=== PATIENT | female | born 1960 | race Caucasian/White ===

== ENCOUNTER 2017-06-23 08:29 | Outpatient (CLI) | payer MEDICARE, MEDICAID ==
[2017-06-23 12:34] LABS: BASOPHILS # (AUTO) 0.1 10^3/uL (0.0-0.1); BASOPHILS % (AUTO) 0.7 %; EOSINOPHILS # (AUTO) 0.4 10^3/uL (0.0-0.7); EOSINOPHILS % (AUTO) 3.4 %; HCT - HEMATOCRIT 41.9 % (37.0-47.0); HGB - HEMOGLOBIN 14.3 g/dL (12.0-16.0); LYMPHOCYTES # (AUTO) 2.8 10^3/uL (1.5-3.5); LYMPHOCYTES % (AUTO) 22.9 %; MEAN CORPUSCULAR HEMOGLOBIN 32.2 pg (27.0-31.0); MEAN CORPUSCULAR HGB CONC 34.1 g/dL (32.0-36.0); MEAN CORPUSCULAR VOLUME 94.3 fL (81.0-99.0); MONOCYTES # (AUTO) 0.7 10^3/uL (0.0-1.0); MONOCYTES % (AUTO) 5.6 %; NEUTROPHILS # (AUTO) 8.1 10^3/uL (1.5-6.6); NEUTROPHILS % (AUTO) 67.4 %; RED BLOOD COUNT 4.45 10^6/uL (4.20-5.40); RED CELL DISTRIBUTION WIDTH 13.4 % (12.0-15.0); UNCORRECTED WHITE BLOOD COUNT 13.1 x10^3/uL
[2017-06-23 12:44] LABS: ALBUMIN/GLOBULIN RATIO 1.4 (1.0-2.2); BILIRUBIN,TOTAL 0.4 mg/dL (0.2-1.0); BUN - BLOOD UREA NITROGEN 16 mg/dL (6-20); CALCIUM 9.5 mg/dL (8.5-10.3); CARBON DIOXIDE - CO2 24 mmol/L (21-32); CHLORIDE 106 mmol/L (101-111); CHOL/HDL RATIO 6.1 (<4.4); CHOLESTEROL 190 mg/dL; CREATININE 0.8 mg/dL (0.4-1.0); GFR - MDRD 74 (>89); GLUCOSE 87 mg/dL (70-100); HDL CHOLESTEROL 31 mg/dL; LDL/HDL RATIO 2.6 (<4.4); SODIUM 138 mmol/L (135-145); TOTAL PROTEIN 7.4 g/dL (6.7-8.2); TRIGLYCERIDES 383 mg/dL; VLDL CHOLESTEROL 77 mg/dL
[2017-06-23 12:53] LABS: PLATELET MORPHOLOGY PLATELET CLUMPING (NORMAL)
== END 2017-06-23 08:30 | disposition home or self-care (01) ==
LOC: LAB.WCP 08:29
PROVIDERS: ATTEND Family Medicine
DX: F32.9 Major depressive disorder, single episode, unspecified (principal); Z13.220 Encounter for screening for lipoid disorders; E78.5 Hyperlipidemia, unspecified; C34.90 Malignant neoplasm of unspecified part of unspecified bronchus or lung
CPT/HCPCS: 36415; 80053; 80061; 85025

== ENCOUNTER 2018-03-16 08:00 | Outpatient (CLI) | payer MEDICAID, MEDICARE ==
[2018-03-16 14:13] LABS: ALBUMIN 4.3 g/dL (3.2-5.5); ALBUMIN/GLOBULIN RATIO 1.5 (1.0-2.2); ALKALINE PHOSPHATASE 85 IU/L (42-121); ALT ALANINE AMINOTRANSFERASE < 10 IU/L (10-60); AST ASPARTATE AMINOTRANSFERASE 16 IU/L (10-42); BILIRUBIN,TOTAL 0.6 mg/dL (0.2-1.0); BUN - BLOOD UREA NITROGEN 14 mg/dL (6-20); CALCIUM 9.2 mg/dL (8.5-10.3); CARBON DIOXIDE - CO2 26 mmol/L (21-32); CHLORIDE 105 mmol/L (101-111); CHOL/HDL RATIO 6.1 (<4.4); CHOLESTEROL 147 mg/dL; CREATININE 0.8 mg/dL (0.4-1.0); GFR - MDRD 73 (>89); GLUCOSE 89 mg/dL (70-100); HDL CHOLESTEROL 24 mg/dL; LDL CHOLESTEROL,CALCULATED 54 mg/dL; LDL/HDL RATIO 2.3 (<4.4); SODIUM 138 mmol/L (135-145); TOTAL PROTEIN 7.1 g/dL (6.7-8.2); VLDL CHOLESTEROL 69 mg/dL
[2018-03-16 14:31] LABS: BASOPHILS # (AUTO) 0.1 10^3/uL (0.0-0.1); BASOPHILS % (AUTO) 0.5 %; EOSINOPHILS # (AUTO) 0.3 10^3/uL (0.0-0.7); EOSINOPHILS % (AUTO) 2.9 %; HGB - HEMOGLOBIN 14.3 g/dL (12.0-16.0); LYMPHOCYTES # (AUTO) 2.2 10^3/uL (1.5-3.5); LYMPHOCYTES % (AUTO) 21.1 %; MEAN CORPUSCULAR HEMOGLOBIN 32.4 pg (27.0-31.0); MEAN CORPUSCULAR HGB CONC 33.9 g/dL (32.0-36.0); MEAN CORPUSCULAR VOLUME 95.6 fL (81.0-99.0); MEAN PLATELET VOLUME 11.4 fL (7.9-10.8); MONOCYTES # (AUTO) 0.7 10^3/uL (0.0-1.0); MONOCYTES % (AUTO) 6.6 %; NEUTROPHILS # (AUTO) 7.3 10^3/uL (1.5-6.6); NEUTROPHILS % (AUTO) 68.9 %; PLT - PLATELET COUNT 121 10^3/uL (130-450); RED BLOOD COUNT 4.41 10^6/uL (4.20-5.40); RED CELL DISTRIBUTION WIDTH 13.4 % (12.0-15.0); WHITE BLOOD COUNT 10.6 x10^3/uL (4.8-10.8)
[2018-03-16 14:56] LABS: PLATELET MORPHOLOGY PLATELET CLUMPING (NORMAL)
[2018-03-16 14:59] LABS: RBC MORPHOLOGY (MULTIPLE) NORMAL APPEARANCE (NORMAL)
== END 2018-03-16 08:01 | disposition home or self-care (01) ==
LOC: LAB.WCP 08:00
PROVIDERS: ATTEND Family Medicine
DX: Z79.899 Other long term (current) drug therapy (principal); G47.00 Insomnia, unspecified; E78.1 Pure hyperglyceridemia; F32.9 Major depressive disorder, single episode, unspecified; C34.90 Malignant neoplasm of unspecified part of unspecified bronchus or lung
CPT/HCPCS: 36415; 80053; 80061; 83721; 84443; 85025

== ENCOUNTER 2018-08-03 16:31 | Outpatient (CLI) | payer MEDICARE, OTHER ==
--- NOTE | 2018-08-03 17:21 | XRAY Report ---
Reason: L SHOULDER PAIN Procedure Date: 08/03/2018 Accession Number: [id number] / [id number] Procedure: XR - Shoulder 3 View LT CPT Code: FULL RESULT: EXAM: LEFT SHOULDER RADIOGRAPHY EXAM DATE: 08/03/2018 04:46 PM. CLINICAL HISTORY: Left shoulder pain for 5 days, getting worse. Decreased range of motion. COMPARISON: None. TECHNIQUE: 3 views. FINDINGS: Bones: Normal. No fracture or bone lesion. Joints: The glenohumeral and acromioclavicular joints are normal. Soft tissues: The visualized hemithorax is unremarkable. Soft tissue calcification along the superior humeral head. IMPRESSION: Calcific tendinitis. [facility] The call report notification system was initiated by Dr. Daniel Beltran at 17:03 hrs on 08/03/18. The above findings were discussed with Dr. De La Cruz by Dr. Daniel Beltran at 17:19 hrs on 08/03/18.
== END 2018-08-03 16:32 | disposition home or self-care (01) ==
LOC: DI 16:31
PROVIDERS: ATTEND Internal Medicine
DX: M75.32 Calcific tendinitis of left shoulder (principal)

== ENCOUNTER 2018-09-14 06:45 | Outpatient (CLI) | payer MEDICARE ==
--- NOTE | 2018-09-14 13:51 | MRI Report ---
Reason: PRIMARY OSTEOARTHRITIS OF LEFT SHOULDER REGION Procedure Date: 09/14/2018 Accession Number: [id number] / [id number] Procedure: MRI - Shoulder LT W/O CPT Code: FULL RESULT: EXAM: LEFT SHOULDER MRI WITHOUT CONTRAST EXAM DATE: 09/14/2018 07:51 AM. CLINICAL HISTORY: Primary osteoarthritis of left shoulder region. COMPARISON: SHOULDER 3 VIEW LT 08/03/2018 4:39 PM. TECHNIQUE: Multiplanar, multisequence T1-weighted and fluid-sensitive sequences of the shoulder without contrast. Other: None. FINDINGS: Acromioclavicular Region: The acromion is type II. The acromioclavicular joint is unremarkable. The coracoacromial and coracoclavicular ligaments are intact. Small fluid collection subacromial-subdeltoid bursa. Glenohumeral Region: No subluxation. No effusion or loose bodies. The articular cartilage is unremarkable. The glenohumeral ligaments and joint capsule are unremarkable. Small quantity of fluid subscapularis bursa. Bone Marrow: Subcortical cyst 5 mm anterior humerus head at the subscapularis tendon insertion. Subcortical cystic degenerative changes 1.2 cm in the anterior aspect of the greater tuberosity. Labrum: Probable superior labrum tear SLAP lesion. Musculature/Rotator Cuff: Focal intermediate signal anterior aspect distal infraspinatus tendon is consistent with tendinosis. Intermediate signal of the distal supraspinatus tendon is consistent with tendinosis. Negative for fluid signal rotator cuff tear. The rotator cuff muscles are negative for edema or atrophy. Small fluid collection subacromial-subdeltoid bursa. Small linear partial tear superior aspect subscapularis tendon 2 cm in length (image 4 series 501). Biceps Tendon: Normal caliber low signal biceps tendon within the bicipital groove. Mild biceps tendon sheath fluid. Intermediate signal of the biceps tendon proximal to the bicipital groove. Other: The subcutaneous tissues are unremarkable. IMPRESSION: 1. Negative for complete rotator cuff tear. 2. Small linear partial tear superior aspect subscapularis tendon 2 cm in length. 3. Supraspinatus and infraspinatus tendinosis. 4. Probable superior labrum tear or SLAP lesion. [facility] MUSCULOSKELETAL RADIOLOGY SECTION
== END 2018-09-14 06:46 | disposition home or self-care (01) ==
LOC: DI 06:45
PROVIDERS: ATTEND Orthopaedic Surgery
DX: M19.012 Primary osteoarthritis, left shoulder (principal); S46.812A Strain of other muscles, fascia and tendons at shoulder and upper arm level, left arm, initial encounter; M75.82 Other shoulder lesions, left shoulder

== ENCOUNTER 2018-10-11 17:09 | Emergency (ER) | payer MEDICARE ==
[2018-10-11] MEDS ORDERED: HYDROmorphone 1 MG/ML CARPUJECT IVP STA (17:45)
--- NOTE | 2018-10-11 17:47 | ED Physician Documentation ---
PD HPI HEADACHE - Stated complaint Stated Complaint: FERRER - Chief complaint Chief Complaint: Neuro - History obtained from History obtained from: Patient - History of Present Illness Timing - onset: Other (This is a 58-year-old woman with history of encephalitis and recurrent meningitis. Per her description she has had meningitis 5 times without defined etiology so I presume some sort of autoimmune issue. Anyway she has had 4 days of gradual onset frontal headache with very mild neck stiffness she says is not nearly as bad as prior episodes of meningitis. There is no fever, light Sensitivity or Nausea.) Review of Systems Ten Systems: 10 systems reviewed and negative Constitutional: denies: Fever, Chills Cardiac: denies: Chest pain / pressure, Palpitations Respiratory: denies: Dyspnea, Cough GI: reports: Reviewed and negative : reports: Reviewed and negative PD PAST MEDICAL HISTORY - Past Medical History Cardiovascular: None Respiratory: None Endocrine/Autoimmune: None GI: Other : None HEENT: Chronic vision loss, Other Psych: None Musculoskeletal: Chronic back pain Derm: None Other Past Medical History: Encephalitis, meningitis, - Past Surgical History Past Surgical History: Yes General: Appendectomy 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: 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 - Present Medications Home Medications: Ambulatory Orders Medication Instructions Recorded Confirmed Atorvastatin [Lipitor] 10 mg pe 10/11/18 Azithromycin [Zithromax] 1 tab PO DAILY #4 tablet 10/11/18 Hydrocodone/Acetaminophen 1 - 2 each PO Q6H PRN #14 tablet 10/11/18 [Hydrocodon-Acetaminophen 5-325] Sertraline HCl [Zoloft] 100 mg PO 10/11/18 - Allergies Allergies/Adverse Reactions: Allergies Allergy/AdvReac Type Severity Reaction Status Date / Time iodine Allergy Edema Verified 08/01/16 13:18 Penicillins Allergy Edema Verified 10/11/18 17:18 - Social History Does the pt smoke?: Yes Smoking Status: Current every day smoker Does the pt drink ETOH?: No Does the pt have substance abuse?: No - Family History Family history: reports: Non contributory - Immunizations Immunizations are current?: Yes PD ED PE NORMAL - Vitals Vital signs reviewed: Yes - General General: Alert and oriented X 3, No acute distress - HEENT HEENT: PERRL, EOMI - Neck Neck: Supple, no meningeal sign, No bony TTP - Cardiac Cardiac: RRR, No murmur - Respiratory Respiratory: No respiratory distress, Clear bilaterally - Abdomen Abdomen: Normal bowel sounds, Soft, Non tender - Back Back: No CVA TTP, No spinal TTP - Derm Derm: Normal color, Warm and dry - Extremities Extremities: No edema, No calf tenderness / cord - Neuro Neuro: Alert and oriented X 3, Normal speech - Psych Psych: Normal mood, Normal affect Results - Vitals Vitals: Vital Signs - 24 hr 10/11/18 10/11/18 10/11/18 17:15 17:30 18:40 Temperature 35.7 C L Heart Rate 76 65 57 L Respiratory 20 15 16 Rate Blood Pressure 138/80 H 117/68 127/71 O2 Saturation 99 97 98 Oxygen O2 Source Room air - Labs Labs: Laboratory Tests 10/11/18 10/11/18 10/11/18 17:45 17:45 18:23 WBC 12.1 H RBC 4.29 Hgb 13.6 Hct 41.5 MCV 96.7 MCH 31.8 H MCHC 32.9 RDW 13.6 Plt Count 159 MPV 10.2 Neut # (Auto) 8.2 H Lymph # (Auto) 2.7 [place] # (Auto) 0.7 Eos # (Auto) 0.3 Baso # (Auto) 0.1 Absolute Nucleated RBC 0.00 Nucleated RBC % 0.0 Manual Slide Review Indicated Sodium 138 Potassium 3.4 L Chloride 104 Carbon Dioxide 28 Anion Gap 6.0 BUN 9 Creatinine 0.8 Estimated GFR (MDRD) 73 L Glucose 97 Calcium 9.0 Total Bilirubin 0.2 AST 14 ALT < 10 L Alkaline Phosphatase 91 Total Protein 6.8 Albumin 4.1 Globulin 2.7 Albumin/Globulin Ratio 1.5 Lipase 19 L CSF Color COLORLESS CSF Clarity CLEAR Xanthrochromic ABSENT CSF WBC 0 CSF RBC 0 CSF Cell Count Tube # CSF TUBE# 3 CSF Glucose 55 CSF Total Protein 29 - Rads (name of study) CT Head Radiology: EMP read contemporaneously (No ICH, sinusitis Left spehnoid) Procedures - Lumbar Puncture Position: Sitting Location: L3-L4 Anesthesia: Local lidocaine CSF: Clear Other: Sterile prep and drape, Patient tolerated well, No complications PD MEDICAL DECISION MAKING - ED course ED course: 58-year-old woman with history of recurrent meningitis presents with headache. Found to have sinusitis but no evidence of meningitis. Treated with Zithromax given penicillin allergy. Departure - Departure Disposition: 01 Home, Self Care Clinical Impression: Sinusitis Qualifiers: Sinusitis location: sphenoidal Chronicity: acute Recurrence: non-recurrent Qualified Code(s): J01.30 - Acute sphenoidal sinusitis, unspecified Headache Qualifiers: Headache type: unspecified Headache chronicity pattern: acute headache Intractability: not intractable Qualified Code(s): R51 - Headache Clinical Impression: (Ruled Out): Meningitis Condition: Good Record reviewed to determine appropriate education?: Yes Instructions: ED Sinusitis Abx Tx Prescriptions: Azithromycin [Zithromax] 1 tab PO DAILY #4 tablet Hydrocodone/Acetaminophen [Hydrocodon-Acetaminophen 5-325] 1 - 2 each PO Q6H PRN #14 tablet PRN Reason: pain Comments: Call your doctor to arrange a follow-up appointment, make the next available appointment. In the interim, return anytime if worse or if new symptoms develop. Do not drink or drive while taking narcotic pain medication. Note that many narcotic pain relievers also contain Tylenol/acetaminophen. Please ensure that your total dose of acetaminophen from all sources does not exceed 3 g (3000 mg) per day. You may get constipated while on this medication. Take a stool softener such as Colace twice a day while you are on it. Also add an [id number] laxative such as senna or MiraLAX on any day that you do not have a bowel movement. If you received a narcotic pain medication or sedative while in the emergency department, do not drive for the next 24 hours.
[2018-10-11 18:07] LABS: BASOPHILS # (AUTO) 0.1 10^3/uL (0.0-0.1); BASOPHILS % (AUTO) 1.2 %; EOSINOPHILS # (AUTO) 0.3 10^3/uL (0.0-0.7); EOSINOPHILS % (AUTO) 2.2 %; HGB - HEMOGLOBIN 13.6 g/dL (12.0-16.0); LYMPHOCYTES # (AUTO) 2.7 10^3/uL (1.5-3.5); LYMPHOCYTES % (AUTO) 22.3 %; MEAN CORPUSCULAR HEMOGLOBIN 31.8 pg (27.0-31.0); MEAN CORPUSCULAR HGB CONC 32.9 g/dL (32.0-36.0); MEAN CORPUSCULAR VOLUME 96.7 fL (81.0-99.0); MEAN PLATELET VOLUME 10.2 fL (7.9-10.8); MONOCYTES # (AUTO) 0.7 10^3/uL (0.0-1.0); MONOCYTES % (AUTO) 6.2 %; NEUTROPHILS # (AUTO) 8.2 10^3/uL (1.5-6.6); NEUTROPHILS % (AUTO) 68.1 %; PLT - PLATELET COUNT 159 10^3/uL (130-450); RED BLOOD COUNT 4.29 10^6/uL (4.20-5.40); RED CELL DISTRIBUTION WIDTH 13.6 % (12.0-15.0); WHITE BLOOD COUNT 12.1 x10^3/uL (4.8-10.8)
[2018-10-11] MEDS ORDERED: LIDOCAINE 1%-EPI 1:100000 30 ML MDV ONE (18:14)
[2018-10-11 18:19] LABS: ALBUMIN 4.1 g/dL (3.2-5.5); ALBUMIN/GLOBULIN RATIO 1.5 (1.0-2.2); ALKALINE PHOSPHATASE 91 IU/L (42-121); ALT ALANINE AMINOTRANSFERASE < 10 IU/L (10-60); AST ASPARTATE AMINOTRANSFERASE 14 IU/L (10-42); BILIRUBIN,TOTAL 0.2 mg/dL (0.2-1.0); BUN - BLOOD UREA NITROGEN 9 mg/dL (6-20); CARBON DIOXIDE - CO2 28 mmol/L (21-32); CHLORIDE 104 mmol/L (101-111); CREATININE 0.8 mg/dL (0.4-1.0); GFR - MDRD 73 (>89); GLUCOSE 97 mg/dL (70-100); LIPASE 19 U/L (22-51); SODIUM 138 mmol/L (135-145); TOTAL PROTEIN 6.8 g/dL (6.7-8.2)
--- NOTE | 2018-10-11 18:46 | CT Report ---
Reason: headache Procedure Date: 10/11/2018 Accession Number: [id number] / [id number] Procedure: CT - Head W/O CPT Code: FULL RESULT: EXAM: CT HEAD EXAM DATE: 10/11/2018 06:08 PM. CLINICAL HISTORY: Headache. COMPARISON: None. TECHNIQUE: Multiaxial CT images were obtained from the foramen magnum to the vertex. Reformats: Sagittal and coronal. IV contrast: None. In accordance with CT protocol optimization, one or more of the following dose reduction techniques were utilized for this exam: automated exposure control, adjustment of mA and/or KV based on patient size, or use of iterative reconstructive technique. FINDINGS: Parenchyma: No intraparenchymal hemorrhage. No evidence of mass, midline shift, or CT findings of infarction. Hammond-white differentiation is distinct. Extraaxial Spaces: Normal for age. No subdural or epidural collections identified. Ventricles: Normal in size and position. Sinuses and Orbits: Mucosal thickening, worst in the left maxillary sinus. Right antrectomy noted. Fluid level in the left sphenoid sinus. The mastoids are clear. The orbits are unremarkable. Bones: No evidence of fracture or calvarial defect. Other: None. IMPRESSION: 1. No intracranial abnormality identified. 2. Sinusitis, with fluid level noted in the left sphenoid sinus. [facility]
[2018-10-11 18:55] LABS: CSF - GLUCOSE 55 mg/dL (45-70)
[2018-10-11 18:56] LABS: CLARITY,CSF CLEAR (CLEAR); COLOR,CSF COLORLESS (COLORLESS); CSF TUBE # CSF TUBE# 3; CSF XANTHOCHROMIA ABSENT (ABSENT); RED BLOOD CELL,CSF 0 /mm^3 (0-1); WHITE BLOOD CELL,CSF 0 /mm^3 (0-5)
[2018-10-11] MEDS ORDERED: AZITHROMYCIN 250 MG TABLET PO STA (19:04)
[2018-10-11 19:10] VITALS: BP 120/77
[2018-10-11] MEDS ORDERED: KETOROLAC 60 MG/2 ML VIAL IVP STA (19:18)
== END 2018-10-11 19:40 | disposition home or self-care (01) ==
LOC: ED 17:09
DX: J01.30 Acute sphenoidal sinusitis, unspecified (principal); F17.200 Nicotine dependence, unspecified, uncomplicated; Z86.61 Personal history of infections of the central nervous system
CPT/HCPCS: 36415; 62270; 70450; 80053; 82945; 83690; 84157; 85025; 86695; 86696; 87070; 87205; 89051; 96374; 96375; 99283; 99284; A9270; J1170

== ENCOUNTER 2019-02-11 13:21 | Outpatient (CLI) | payer MEDICARE ==
--- NOTE | 2019-02-12 08:32 | XRAY Report ---
Reason: DUYSPENA Procedure Date: 02/11/2019 Accession Number: [id number] / [id number] Procedure: XR - Chest 2 View X-Ray CPT Code: 31657 FULL RESULT: EXAM: CHEST RADIOGRAPHY EXAM DATE: 02/11/2019 02:12 PM. CLINICAL HISTORY: Dyspnea. COMPARISON: None. TECHNIQUE: 2 views. FINDINGS: Lungs/Pleura: No focal opacities evident. No pleural effusion. No pneumothorax. Normal volumes. Right apical pleural thickening is noted. Mediastinum: Heart and mediastinal contours are unremarkable. Other: None. IMPRESSION: 1. No acute pulmonary process. [facility]
== END 2019-02-11 13:22 | disposition home or self-care (01) ==
LOC: DI 13:21
PROVIDERS: ATTEND Internal Medicine
DX: R06.00 Dyspnea, unspecified (principal)
CPT/HCPCS: 71046

== ENCOUNTER 2022-06-05 08:37 | Outpatient (CLI) | payer OTHER ==
--- NOTE | 2022-06-05 12:46 | CT Report ---
PROCEDURE: Low Dose Lung Cancer Screen INDICATIONS: Tobacco use history. PARETHESIAS TECHNIQUE: Noncontrast low-dose axial images were acquired from the pulmonary apices to the posterior costophren ic angles. Multiplanar MIP reformats were then reconstructed. For radiation dose reduction, the follo wing was used: automated exposure control, adjustment of mA and/or kV according to patient size. COMPARISON: Chest radiograph, 02/11/2019 FINDINGS: Image quality: Excellent. Lungs and pleura: There is a small amount of brain also opacity seen within the right middle lobe camara periorly and laterally, as on series 4 image 125, measuring 18 mm. Mediastinum: Heart size is normal. No pericardial effusion. No mediastinal adenopathy by size crit eria. Calcified left mediastinal and left perihilar lymph nodes are seen. Thoracic aorta and central pulmonary arteries are normal in size. Esophagus is normal in caliber. There is a small hiatal autumn ia. Bones and chest wall: No suspicious bony lesions. No vertebral body compression fractures. No axil ravi or supraclavicular adenopathy by size criteria. The thyroid is normal in size and there are no incidental findings. Abdomen: Visualized upper abdomen solid organs and bowel loops appear normal in the absence of contr ast. Lumbar spine fixation hardware is partially seen. IMPRESSION: There is a 2 mm focus of groundglass opacity seen within the right middle lobe. No suspicious solid nodules are seen. Incidental note is made of: Small hiatal hernia Lumbar spine fixation hardware Prior granulomatous exposure. Lung RADS category: 2 Recommend annual low-dose CT chest screening examinations, as long as the patient meets the published screening criteria. Reviewed by: Aryan Roy MD on 06/05/2022 11:44 AM DEBBIE Approved by: Aryan Roy MD on 06/05/2022 11:44 AM DEBBIE Station ID: [id number]
== END 2022-06-05 08:38 | disposition home or self-care (01) ==
LOC: DI 08:37
PROVIDERS: ATTEND Nurse Practitioner
DX: Z12.2 Encounter for screening for malignant neoplasm of respiratory organs (principal); Z87.891 Personal history of nicotine dependence; R91.8 Other nonspecific abnormal finding of lung field

== ENCOUNTER 2022-08-23 09:33 | Outpatient (CLI) | payer MEDICARE ==
[2022-08-23 12:01] LABS: BASOPHILS # (AUTO) 0.1 10^3/uL (0.0-0.1); BASOPHILS % (AUTO) 0.9 %; EOSINOPHILS # (AUTO) 0.4 10^3/uL (0.0-0.7); HCT - HEMATOCRIT 40.5 % (37.0-47.0); HGB - HEMOGLOBIN 13.7 g/dL (12.0-16.0); LYMPHOCYTES # (AUTO) 2.3 10^3/uL (1.5-3.5); LYMPHOCYTES % (AUTO) 22.9 %; MEAN CORPUSCULAR HEMOGLOBIN 32.9 pg (27.0-31.0); MEAN CORPUSCULAR HGB CONC 33.8 g/dL (32.0-36.0); MEAN CORPUSCULAR VOLUME 97.1 fL (81.0-99.0); MEAN PLATELET VOLUME 12.3 fL (7.9-10.8); MONOCYTES # (AUTO) 0.7 10^3/uL (0.0-1.0); MONOCYTES % (AUTO) 6.5 %; NEUTROPHILS # (AUTO) 6.6 10^3/uL (1.5-6.6); NEUTROPHILS % (AUTO) 65.4 %; RED BLOOD COUNT 4.17 10^6/uL (4.20-5.40); RED CELL DISTRIBUTION WIDTH 12.5 % (12.0-15.0); WHITE BLOOD COUNT 10.2 x10^3/uL (4.8-10.8)
[2022-08-23 12:14] LABS: PLATELET MORPHOLOGY PLATELET CLUMPING (NORMAL)
[2022-08-23 12:27] LABS: ALBUMIN 4.5 g/dL (3.2-5.5); ALBUMIN/GLOBULIN RATIO 1.8 (1.0-2.2); ALKALINE PHOSPHATASE 73 IU/L (42-121); ALT ALANINE AMINOTRANSFERASE 11 IU/L (10-60); AST ASPARTATE AMINOTRANSFERASE 17 IU/L (10-42); BILIRUBIN,TOTAL 0.8 mg/dL (0.2-1.0); BUN - BLOOD UREA NITROGEN 10 mg/dL (6-20); CALCIUM 9.6 mg/dL (8.5-10.3); CARBON DIOXIDE - CO2 29 mmol/L (21-32); CHLORIDE 102 mmol/L (101-111); CHOL/HDL RATIO 4.3 (<4.4); CHOLESTEROL 133 mg/dL; CREATININE 0.8 mg/dL (0.4-1.0); GFR - MDRD 72 (>89); GLUCOSE 98 mg/dL (70-100); HDL CHOLESTEROL 31 mg/dL; LDL CHOLESTEROL,CALCULATED 36 mg/dL; LDL/HDL RATIO 1.2 (<4.4); SODIUM 138 mmol/L (135-145); TRIGLYCERIDES 331 mg/dL; VLDL CHOLESTEROL 66 mg/dL
[2022-08-23 12:29] LABS: THYROID STIMULATING HORMONE 2.02 uIU/mL (0.34-5.60)
[2022-08-23 12:31] LABS: FREE T4 (FREE THYROXINE) 0.92 ng/dL (0.58-1.64)
== END 2022-08-23 09:34 | disposition home or self-care (01) ==
LOC: LAB.N 09:33
PROVIDERS: ATTEND Nurse Practitioner
DX: E78.1 Pure hyperglyceridemia (principal); R53.83 Other fatigue; Z85.850 Personal history of malignant neoplasm of thyroid
CPT/HCPCS: 36415; 80053; 80061; 83721; 84439; 84443; 85025

== ENCOUNTER 2023-07-25 17:34 | Emergency (ER) | payer MEDICARE ==
[2023-07-25 17:53] VITALS: BP 160/96; O2SAT 99
[2023-07-25] MEDS ORDERED: methocarbamoL 500 MG TABLET PO STA (18:14)
[2023-07-25] MEDS ORDERED: HYDROmorphone 1 MG/ML CARPUJECT IM STA (18:15)
[2023-07-25] MEDS ORDERED: DEXAMETHASONE 10 MG/ML VIAL PO STA (18:15)
--- NOTE | 2023-07-25 18:17 | ED Physician Documentation ---
PD HPI BACK PAIN - Stated complaint Stated Complaint: BACK PX/SPASMS - Chief complaint Chief Complaint: Back Pain - History obtained from History obtained from: Patient, Family - History of Present Illness Location: Mid, Lower, Right, Left Quality: Pain, Spasm Associated symptoms: No: Fever, Weakness, Numbness, Incontinent of urine, Unable to urinate, Hematuria, Incontinent of stool Improves with: Rest Worsened by: Movement Contributing factors: Other (Patient states that she did not lift, twist or have any trauma. She states spasm to the back.). No: Lifting, Twisting, Trauma, Anticoagulated, Cancer, IVDA, Out of meds Similar symptoms before: Other (Patient has had spine surgery, is on chronic pain medication at home and has chronic back pain.) - Additional information Additional information: Patient is a 62-year-old female has a longstanding history of chronic back pain. Review of Systems Constitutional: denies: Fever, Chills GI: denies: Nausea, Vomiting, Diarrhea : denies: Unable to Void, Incontinent, Hematuria Skin: denies: Rash Musculoskeletal: denies: Neck pain Neurologic: denies: Headache PD PAST MEDICAL HISTORY - Past Medical History Past Medical History: Yes Cardiovascular: Hypertension, High cholesterol Respiratory: COPD Neuro: None Endocrine/Autoimmune: None GI: Other DISPERSION MIXER: None : None HEENT: Chronic vision loss, Other Psych: None Musculoskeletal: Osteoarthritis, Chronic back pain Derm: None - Past Surgical History Past Surgical History: Yes General: Appendectomy Ortho: Other /DISPERSION MIXER: Hysterectomy, Oophrectomy - Present Medications Home Medications: Ambulatory Orders Medication Instructions Recorded Confirmed Atorvastatin [Lipitor] 10 mg pe ORAL DAILY 10/11/18 07/25/23 Sertraline HCl [Zoloft] 100 mg PO DAILY 10/11/18 07/25/23 Buprenorphine HCl [Belbuca] 300 mcg BC BID 07/25/23 07/25/23 Cyclobenzaprine HCl 5 mg PO TID PRN 07/25/23 07/25/23 Pantoprazole [Protonix] 40 mg PO BID 07/25/23 07/25/23 Trazodone HCl 100 mg PO HS 07/25/23 07/25/23 buPROPion HCL [Bupropion Xl] 150 mg PO DAILY 07/25/23 07/25/23 methocarbamoL [Robaxin] 500 mg PO Q6H PRN #20 tablet 07/25/23 methylPREDNISolone [Medrol] 4 mg PO DAILY #1 ea 07/25/23 - Allergies Allergies/Adverse Reactions: Allergies Allergy/AdvReac Type Severity Reaction Status Date / Time iodine Allergy Edema Verified 07/25/23 17:46 Penicillins Allergy Edema Verified 07/25/23 17:46 - Social History Does the pt smoke?: No Smoking Status: Former smoker Does the pt drink ETOH?: No Does the pt have substance abuse?: No - Immunizations Immunizations are current?: Yes PD ED PE NORMAL - Vitals Vital signs reviewed: Yes - General General: Alert and oriented X 3, No acute distress - HEENT HEENT: Moist mucous membranes - Neck Neck: Supple, no meningeal sign - Cardiac Cardiac: RRR - Respiratory Respiratory: No respiratory distress, Clear bilaterally - Abdomen Abdomen: Soft, Non tender, Non distended - Back Back: Other (Midline scar to the lumbar spine from prior surgeries. No signs of infection. No spinal tenderness. No significant spasm.) - Derm Derm: Warm and dry - Extremities Extremities: No edema, No calf tenderness / cord - Neuro Neuro: Alert and oriented X 3, No motor deficit, No sensory deficit, Other (Normal bilateral lower extremity patellar and ankle jerk reflexes. Normal great toe extension bilaterally. no saddle anesthesia) - Psych Psych: Normal mood, Normal affect Results - Vitals Vitals: Vital Signs - 24 hr 07/25/23 17:46 Temperature 37.1 C Heart Rate 81 Respiratory 20 Rate Blood Pressure 160/96 H O2 Saturation 99 Oxygen O2 Source Room air PD Medical Decision Making - ED course Complexity details: re-evaluated patient, considered differential (No cauda equina, no spinal epidural abscess, no fracture, no aortic dissection or evidence of aneursym rupture), d/w patient ED course: 62-year-old female with paroxysmal back spasms, low lumbar spine. Likely has some nerve irritation. No trauma. No indication for emergent imaging. No evidence of cauda equina, epidural abscess. She is on buprenorphine for pain at home. Given a dose of Dilaudid here as well as Robaxin and dexamethasone. Spasms are decreasing in frequency and intensity and she request to go home at this time. We will place her on a Medrol Dosepak and Robaxin. Patient counseled regarding signs and symptoms for which I believe and urgent re-ev aluation would be necessary. Patient with good understanding of and agreement to plan and is comfortable going home at this time This document was made in part using voice recognition software. While efforts are made to proofread this document, sound alike and grammatical errors may occur. Departure - Departure Disposition: 01 Home, Self Care Clinical Impression: Back muscle spasm Condition: Good Instructions: ED Spasm Back No Trauma Follow-Up: Tete Chandler ARNP [Primary Care Provider] - Within 3 Days Prescriptions: methylPREDNISolone [Medrol] 4 mg PO DAILY #1 ea methocarbamoL [Robaxin] 500 mg PO Q6H PRN #20 tablet PRN Reason: muscle spasm Comments: Your prescriptions were sent to [facility] in [place]. Please follow-up with your doctor for further care. Please return if you worsen. This should continue to improve over the next 24 hours. Continue your current medications at home. Discharge Date/Time: 07/25/23 20:00
[2023-07-25] MEDS ORDERED: CHERRY SYRUP 10 ML UDC PO ONE (18:46)
== END 2023-07-25 20:00 | disposition home or self-care (01) ==
LOC: ED 17:34
DX: M62.830 Muscle spasm of back (principal); I10 Essential (primary) hypertension; Z87.891 Personal history of nicotine dependence
CPT/HCPCS: 96372; 99283; A9270; J1170

== ENCOUNTER 2023-08-25 10:43 | Outpatient (CLI) | payer MEDICARE ==
--- NOTE | 2023-08-25 16:52 | XRAY Report ---
PROCEDURE: Lumbar Spine 2 View INDICATIONS: LOW BACK PAIN,CHRONIC TECHNIQUE: 3 views of the lumbar spine were acquired. COMPARISON: None. FINDINGS: Bones: 5 [id number] vertebrae are present. There is normal bony alignment. No vertebral body compression fractures. No suspicious bony lesions. L3-L5 fusion hardware. Multilevel disc space norman rowing and endplate osteophyte formation, as well as facet hypertrophy. Soft tissues: Overlying bowel gas pattern is normal. No suspicious soft tissue calcifications. IMPRESSION: 1. Postsurgical sequelae. 2. Multilevel degenerative disc and facet disease. 3. No acute fracture. No osseous lesion. If symptoms and/or clinical suspicion for pathology continue , further assessment with repeat plain films, or advanced imaging (e.g., CT, MRI, or bone scan) is re commended for further assessment. Reviewed by: Neptali Wharton MD on 08/25/2023 4:51 PM PDT Approved by: Neptali Wharton MD on 08/25/2023 4:51 PM PDT Station ID: [id number]
== END 2023-08-25 10:44 | disposition home or self-care (01) ==
LOC: DI 10:43
PROVIDERS: ATTEND Nurse Practitioner
DX: M47.816 Spondylosis without myelopathy or radiculopathy, lumbar region (principal); M51.36 Other intervertebral disc degeneration, lumbar region

== ENCOUNTER 2023-12-13 08:00 | Outpatient (CLI) | payer MEDICARE ==
[2023-12-13 18:15] LABS: BILIRUBIN,URINE NEGATIVE (NEGATIVE); GLUCOSE, URINE (UA) NEGATIVE (NEGATIVE); KETONES,URINE (UA) NEGATIVE (NEGATIVE); LEUKOCYTE ESTERASE, URINE MODERATE (NEGATIVE); NITRITE,URINE POSITIVE (NEGATIVE); OCCULT BLOOD,URINE LARGE (NEGATIVE); PROTEIN,URINE 100 mg/dL (NEGATIVE); UROBILINOGEN,URINE 0.2 (NORMAL) E.U./dL (NORMAL)
[2023-12-13 18:17] LABS: CLARITY,URINE CLOUDY (CLEAR)
[2023-12-13 18:29] LABS: BACTERIA,URINE Many /HPF (None Seen); CRYSTALS,URINE 0-2 Calcium Oxalate /LPF; SQUAMOUS EPITHELIAL CELL,UR RARE Squamous (<= Few); WBC,URINE >25 /HPF (0-5)
== END 2023-12-13 23:59 | disposition home or self-care (01) ==
LOC: LAB.WCP 08:00
PROVIDERS: ATTEND Nurse Practitioner
DX: N39.0 Urinary tract infection, site not specified (principal)
CPT/HCPCS: 81001; 87086; 87181

== ENCOUNTER 2023-12-27 08:00 | Outpatient (CLI) | payer MEDICARE ==
[2023-12-27 12:50] LABS: BILIRUBIN,URINE NEGATIVE (NEGATIVE); GLUCOSE, URINE (UA) NEGATIVE (NEGATIVE); KETONES,URINE (UA) NEGATIVE (NEGATIVE); LEUKOCYTE ESTERASE, URINE TRACE (NEGATIVE); NITRITE,URINE NEGATIVE (NEGATIVE); OCCULT BLOOD,URINE LARGE (NEGATIVE); PH,URINE 5.5 PH (5.0-7.5); PROTEIN,URINE 100 mg/dL (NEGATIVE); UROBILINOGEN,URINE 0.2 (NORMAL) E.U./dL (NORMAL)
[2023-12-27 13:03] LABS: CLARITY,URINE HAZY (CLEAR)
[2023-12-27 13:04] LABS: BACTERIA,URINE Few /HPF (None Seen); CRYSTALS,URINE 11-25 Ca Oxalate /LPF; RBC,URINE TNTC /HPF (0-5); SQUAMOUS EPITHELIAL CELL,UR FEW Squamous (<= Few)
== END 2023-12-27 23:59 | disposition home or self-care (01) ==
LOC: LAB.N 08:00
PROVIDERS: ATTEND Nurse Practitioner
DX: N20.0 Calculus of kidney (principal)
CPT/HCPCS: 81001; 81003; 82365; 87086

== ENCOUNTER 2024-01-03 15:28 | Outpatient (CLI) | payer MEDICARE ==
[2024-01-03] MEDS ORDERED: iohexoL-300 100 ML VIAL ONE (15:43)
[2024-01-03 15:58] LABS: CREATININE 0.9 mg/dL (0.6-1.3)
[2024-01-03] MEDS: iohexoL-300 100 ML VIAL IVP ONE (19:46)
--- NOTE | 2024-01-04 13:23 | CT Report ---
PROCEDURE: IVP INDICATIONS: KIDNEY STONE CONTRAST: 140mL Omni 300 TECHNIQUE: A [address] of the abdomen and pelvis was performed. Non-contrast and contrast images were recorded and evaluated at appropriate window settings. Images were recorded and evaluated at appropriate windo w settings. Reformats: coronal and sagittal. For radiation dose reduction, the following was used: au tomated exposure control, adjustment of convex left scoliosis. 3 interval casting with improved align ment at the tibia and fibula fractures. MA and/or kV according to patient size. COMPARISON: 06/05/2020. FINDINGS: Image quality: Suboptimal due to metallic artifact. Urinary system: Both kidneys are normal in size. No hydronephrosis or nephrolithiasis on pre-contras t images. No solid masses or complex cysts which require follow up. The opacified renal calyces and ureters appear normal, without filling defect. Bladder wall thickness is normal, accounting for unde rdistention. No calcified bladder stones. Polypoidal filling mass along the left posterior bladder wa ll measuring 2.3 x 2.4 cm (series 12, image 121). OTHER Lower chest: Large left pleural effusion with left basilar atelectasis. Sub-5 mm solid pulmonary nodu les in the right lung base, new since 06/05/2022. Additional calcific granuloma present. Liver: No solid mass. Gallbladder and biliary tree: No radiopaque stones or wall thickening. No biliary dilation. Spleen: No splenomegaly. Pancreas: No pancreatic ductal dilation. Adrenals: No adrenal nodule. Stomach, bowel and peritoneum: No bowel distension. No pathologic free fluid. Diverticulosis without evidence of diverticulitis. Abdominal Lymph nodes: No central or retroperitoneal adenopathy. Vessels: Unremarkable. Reproductive organs: Unremarkable. Pelvic Lymph nodes: Unremarkable. Bones: No aggressive osseous abnormality. Other: None. IMPRESSION: Polypoidal filling mass along the left posterior bladder wall measuring 2.3 x 2.4 cm, concerning for transitional cell carcinoma. Urology referral is recommended. No pelvic adenopathy. Large left pleural effusion with left basilar atelectasis. Additionally, there is new right basilar p ulmonary nodules concerning for malignancy. Recommend chest CT with contrast for further characteriza tion. Reviewed by: Emery Cali MD on 01/04/2024 1:22 PM PST Approved by: Emery Cali MD on 01/04/2024 1:22 PM PST Station ID: [id number]
== END 2024-01-03 15:29 | disposition home or self-care (01) ==
LOC: LAB 15:28
PROVIDERS: ATTEND Nurse Practitioner
DX: N20.0 Calculus of kidney (principal); N32.89 Other specified disorders of bladder; J90 Pleural effusion, not elsewhere classified; J98.11 Atelectasis; R91.8 Other nonspecific abnormal finding of lung field
CPT/HCPCS: 36415; 74178; 82565; Q9967

== ENCOUNTER 2024-01-19 14:55 | Outpatient (CLI) | payer MEDICARE ==
[2024-01-19] MEDS ORDERED: iohexoL-300 100 ML VIAL ONE (14:59)
[2024-01-19 15:41] LABS: HCT - HEMATOCRIT 37.4 % (37.0-47.0); HGB - HEMOGLOBIN 12.1 g/dL (12.0-16.0); MEAN CORPUSCULAR HEMOGLOBIN 30.4 pg (27.0-31.0); MEAN CORPUSCULAR HGB CONC 32.4 g/dL (32.0-36.0); MEAN PLATELET VOLUME 10.8 fL (7.9-10.8); RED BLOOD COUNT 3.98 10^6/uL (4.20-5.40); RED CELL DISTRIBUTION WIDTH 13.4 % (12.0-15.0); WHITE BLOOD COUNT 7.8 x10^3/uL (4.8-10.8)
[2024-01-19] MEDS: iohexoL-300 100 ML VIAL IVP ONE (15:47)
[2024-01-19 15:54] LABS: PLT - PLATELET COUNT 294 10^3/uL (130-450)
--- NOTE | 2024-01-19 16:17 | CT Report ---
PROCEDURE: Chest W INDICATIONS: LUNG NODULE CONTRAST: 100ml omni 300 TECHNIQUE: After the administration of intravenous contrast, a CT scan of the chest was performed. Images were recorded and evaluated at appropriate window settings. Reformats: axial MIP of the chest, coronal and sagittal. For radiation dose reduction, the following was used: automated exposure control, adjustme nt of mA and/or kV according to patient size. COMPARISON: 01/03/2024. FINDINGS: Image quality: Diagnostic. Chest wall and lower neck: Left thyroidectomy. Borderline enlarged left supraclavicular fossa node me asuring 0.7 cm short axis (series 2, image 7). Lungs and pleura: Large, likely a left-sided pleural effusion with pleural thickening. Solid bilatera l pulmonary nodules, concerning for metastatic disease. For instance: -1 cm right lower lobe solid nodule (series 4, image 49). -0.9 cm left upper lobe solid nodule (series 4, image 38). Mediastinum: Heart size is normal. No pericardial effusion. No large vessel abnormality. Mediastinal adenopathy. For instance: -1.1 cm right lower paratracheal node (series 2, image 28). -1.5 cm right upper paratracheal node (series 2, image 24). Bones: No aggressive osseous abnormality. T10 hemangioma. Upper Abdomen: Hyperattenuating 5 mm focus in segment 7 (series 2, image 34). IMPRESSION: Solid bilateral pulmonary nodules, concerning for metastatic disease. Borderline enlarged left supraclavicular fossa node. No enlarged mediastinal lymph nodes, concerning for lymphadenopathy. Large, loculated left-sided pleural effusion with pleural thickening, possibly malignant. Hyperattenuating 5 mm focus in segment 7 of the liver. Findings could represent a small metastasis or hemangioma. Reviewed by: Emery Cali MD on 01/19/2024 4:16 PM PST Approved by: Emery Cali MD on 01/19/2024 4:16 PM PST Station ID: [id number]
== END 2024-01-19 14:56 | disposition home or self-care (01) ==
LOC: DI 14:55
PROVIDERS: ATTEND Nurse Practitioner
DX: R53.83 Other fatigue (principal); D69.1 Qualitative platelet defects; R91.8 Other nonspecific abnormal finding of lung field; J90 Pleural effusion, not elsewhere classified; K76.89 Other specified diseases of liver
CPT/HCPCS: 36415; 85027

== ENCOUNTER 2024-01-19 15:20 | Emergency (ER) | payer MEDICARE ==
[2024-01-19 16:01] LABS: BASOPHILS # (AUTO) 0.1 10^3/uL (0.0-0.1); BASOPHILS % (AUTO) 0.8 %; EOSINOPHILS # (AUTO) 0.2 10^3/uL (0.0-0.7); EOSINOPHILS % (AUTO) 2.6 %; HCT - HEMATOCRIT 37.4 % (37.0-47.0); HGB - HEMOGLOBIN 12.1 g/dL (12.0-16.0); LYMPHOCYTES % (AUTO) 25.8 %; MEAN CORPUSCULAR HEMOGLOBIN 30.3 pg (27.0-31.0); MEAN CORPUSCULAR HGB CONC 32.4 g/dL (32.0-36.0); MEAN CORPUSCULAR VOLUME 93.5 fL (81.0-99.0); MONOCYTES # (AUTO) 0.6 10^3/uL (0.0-1.0); MONOCYTES % (AUTO) 7.8 %; NEUTROPHILS # (AUTO) 4.9 10^3/uL (1.5-6.6); NEUTROPHILS % (AUTO) 62.9 %; RED CELL DISTRIBUTION WIDTH 13.4 % (12.0-15.0); WHITE BLOOD COUNT 7.8 x10^3/uL (4.8-10.8)
[2024-01-19 16:05] LABS: MEAN PLATELET VOLUME 9.8 fL (7.9-10.8); PLT - PLATELET COUNT 265 10^3/uL (130-450)
[2024-01-19 16:12] LABS: ALBUMIN 4.1 g/dL (3.2-5.5); ALBUMIN/GLOBULIN RATIO 1.8 (1.0-2.2); ALKALINE PHOSPHATASE 97 IU/L (42-121); ALT ALANINE AMINOTRANSFERASE 4 IU/L (10-60); AST ASPARTATE AMINOTRANSFERASE 12 IU/L (10-42); BILIRUBIN,TOTAL 0.5 mg/dL (0.2-1.0); BUN - BLOOD UREA NITROGEN 8 mg/dL (6-20); CALCIUM 9.7 mg/dL (8.5-10.3); CARBON DIOXIDE - CO2 30 mmol/L (21-32); CHLORIDE 99 mmol/L (101-111); CREATININE 0.7 mg/dL (0.6-1.3); GFR - MDRD 84 (>89); GLUCOSE 111 mg/dL (74-104); POTASSIUM 3.6 mmol/L (3.5-4.5); SODIUM 136 mmol/L (135-145); TOTAL PROTEIN 6.4 g/dL (6.4-8.9)
[2024-01-19 16:15] LABS: LIPASE < 10 U/L (11-82)
[2024-01-19 16:30] LABS: BILIRUBIN,URINE NEGATIVE (NEGATIVE); GLUCOSE, URINE (UA) NEGATIVE (NEGATIVE); KETONES,URINE (UA) NEGATIVE (NEGATIVE); LEUKOCYTE ESTERASE, URINE MODERATE (NEGATIVE); NITRITE,URINE POSITIVE (NEGATIVE); OCCULT BLOOD,URINE LARGE (NEGATIVE); PH,URINE 6.5 PH (5.0-7.5); PROTEIN,URINE 30 mg/dL (NEGATIVE); UROBILINOGEN,URINE 0.2 (NORMAL) E.U./dL (NORMAL)
[2024-01-19 16:32] LABS: CLARITY,URINE CLOUDY (CLEAR)
--- NOTE | 2024-01-19 16:35 | ED Physician Documentation ---
PD HPI ABD PAIN - Stated complaint Stated Complaint: - Chief complaint Chief Complaint: Abd Pain - History obtained from History obtained from: Patient, Family - Additional information Additional information: 63-year-old woman who was previously healthy started to have some urinary symptoms and had a workup done recently. She did have a UTI with E. coli the end of the November and subsequently started having progressive hematuria. She had outpatient CAT scan done on 04 January demonstrating a bladder mass with large pleural effusion and pulmonary nodules concerning for malignancy. This was followed by a chest CT done today as an outpatient demonstrating bilateral pulmonary nodules concerning for metastatic disease, large loculated left pleural effusion possibly malignant, possible small metastasis in the liver. She has been having more hematuria and yesterday was having clots and she has some suprapubic pain and pressure as well as left-sided chest pressure and shortness of breath. 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: Hysterectomy, Oophrectomy - Present Medications Home Medications: Ambulatory Orders Medication Instructions Recorded Confirmed Atorvastatin [Lipitor] 10 mg pe ORAL DAILY 10/11/18 07/25/23 Sertraline HCl [Zoloft] 100 mg PO DAILY 10/11/18 07/25/23 Buprenorphine HCl [Belbuca] 300 mcg BC BID 07/25/23 07/25/23 Cyclobenzaprine HCl 5 mg PO TID PRN 07/25/23 07/25/23 Pantoprazole [Protonix] 40 mg PO BID 07/25/23 07/25/23 Trazodone HCl 100 mg PO HS 07/25/23 07/25/23 buPROPion HCL [Bupropion Xl] 150 mg PO DAILY 07/25/23 07/25/23 methocarbamoL [Robaxin] 500 mg PO Q6H PRN #20 tablet 07/25/23 methylPREDNISolone [Medrol] 4 mg PO DAILY #1 ea 07/25/23 HYDROcod/ACETAM 5/325 [[place] 5/325] 1 - 2 tab PO Q6H PRN #15 tablet 01/19/24 cephALEXin [Keflex] 500 mg PO Q6H #28 cap 01/19/24 - Allergies Allergies/Adverse Reactions: Allergies Allergy/AdvReac Type Severity Reaction Status Date / Time iodine Allergy Edema Verified 01/19/24 15:44 Penicillins Allergy Edema Verified 01/19/24 15:44 - Social History Does the pt smoke?: No Smoking Status: Never smoker Does the pt drink ETOH?: No Does the pt have substance abuse?: No - Immunizations Immunizations are current?: Yes - POLST Patient has POLST: Yes PD ED PE NORMAL - Vitals Vital signs reviewed: Yes - General General: Alert and oriented X 3, No acute distress - HEENT HEENT: PERRL, EOMI - Neck Neck: Supple, no meningeal sign, No bony TTP - Cardiac Cardiac: RRR, No murmur - Respiratory Respiratory: No respiratory distress, Other (Absent left-sided breath sounds) - Abdomen Abdomen: Non tender - Neuro Neuro: Alert and oriented X 3, Normal speech Results - Vitals Vitals: Vital Signs - 24 hr 01/19/24 01/19/24 15:35 18:02 Temperature 36.3 C L Heart Rate 69 71 Respiratory 16 18 Rate Blood Pressure 111/54 L 115/65 O2 Saturation 100 98 Oxygen O2 Source Room air - Labs Labs: Laboratory Tests 01/19/24 01/19/24 01/19/24 15:01 15:01 16:15 WBC 7.8 RBC 4.00 L Hgb 12.1 Hct 37.4 MCV 93.5 MCH 30.3 MCHC 32.4 RDW 13.4 Plt Count 265 MPV 9.8 Neut # (Auto) 4.9 Lymph # (Auto) 2.0 [place] # (Auto) 0.6 Eos # (Auto) 0.2 Baso # (Auto) 0.1 Absolute Nucleated RBC 0.00 Nucleated RBC % 0.0 Sodium 136 Potassium 3.6 Chloride 99 L Carbon Dioxide 30 Anion Gap 7.0 BUN 8 Creatinine 0.7 Estimated GFR (MDRD) 84 L Glucose 111 H Calcium 9.7 Total Bilirubin 0.5 AST 12 ALT 4 L Alkaline Phosphatase 97 Total Protein 6.4 Albumin 4.1 Globulin 2.3 Albumin/Globulin Ratio 1.8 Lipase < 10 L Urine Color YELLOW Urine Clarity CLOUDY Urine pH 6.5 Ur Specific [place] <=1.005 Urine Protein 30 H Urine Glucose (UA) NEGATIVE Urine Ketones NEGATIVE Urine Occult Blood LARGE H Urine Nitrite POSITIVE H Urine Bilirubin NEGATIVE Urine Urobilinogen 0.2 (NORMAL) Ur Leukocyte Esterase MODERATE H Urine RBC TNTC H Urine WBC >25 H Ur Squamous Epith Cells RARE Squamous Urine Bacteria Many H Ur Microscopic Review INDICATED Urine Culture Comments INDICATED Procedures - Thoracentesis - Major Preparation: Consent obtained, Sterile prep and drape, Sitting, Local - lidocaine Technique: Catheter over needle, Left, Ultrasound used Fluid: Bloody, Sent for cytology Aftercare: CXR obtained PD Medical Decision Making - ED course ED course: 63-year-old woman presents with a constellation of outpatient workup concerning for probably bladder cancer with metastasis and malignant pleural effusion. She has persistent nitrate which may be from UTI. CBC does not demonstrate leukocytosis nor anemia. CMP is generally unremarkable. She has an appoint with Dr. Lyons in a couple of weeks. Today we will treat her UTI with Rocephin and I offered a therapeutic/diagnostic left thoracentesis with the patient being eager to do so. The thoracentesis went well but was unable to get all of the fluid off because she started evolving some coughing and pain. After 1.25 L it was aborted and what was received was sent for cytology. I did send an email to Dr. Lyons to see if her appointment can be expedited. Departure - Departure Disposition: 01 Home, Self Care Clinical Impression: UTI (urinary tract infection), Pleural effusion Condition: Good Record reviewed to determine appropriate education?: Yes Prescriptions: cephALEXin [Keflex] 500 mg PO Q6H #28 cap HYDROcod/ACETAM 5/325 [[place] 5/325] 1 - 2 tab PO Q6H PRN #15 tablet PRN Reason: Pain Comments: You are seen today for bloody urine in the setting of known prior results consistent with bladder cancer and now a large amount of fluid on your left lung which we were able to drain about 1-1/4 L of. Cytology is pending and I will copy that to Dr. Lyons as well as your primary care nurse practitioner. In the meantime I sent prescriptions for antibiotics and painkillers to the [facility] in [place]. I did send Dr. Lyons an email to see if they can move up your appointment. We will culture your urine, the results should be done in 48-72 hours. If an a ntibiotic change is necessary we will call you. Return if worse in the meantime, especially if you develop increasing flank pain, fevers, or cannot keep down the medication. I am prescribing a short course of narcotic pain medication for you. These are potentially dangerous and addictive medications that should be used carefully. These medications may constipate you. Take an ypbw-kam-uzwdpoz stool softener (docusate) twice daily with plenty of water while taking these medications. If you go 24 hours without a bowel movement, take [id number]-[id number] miralax, per package instructions. Do not drink or drive while taking these medications. If you received narcotic or sedating medications while in the emergency department, do not drive for 24 hours. Store this medication in a safe, secure place and out of reach of children. It is a violation of federal law to give or sell this medication to another person or to use in a manner other than prescribed. The ED will not refill narcotic prescriptions, including prescriptions lost or stolen. To dispose of unwanted medications: 1. [facility] provides a drop box for medication in pill form only (no liquids) 8:00 am to 4:30 p.m. Monday-Monday in the lobby of the [facility], [address] [place] [address]. Empty pills into ziplock bag before disposal. Call [phone] for information. 2.[employer] is a free service available to all [facility] residents. Go to [email or web address] Note that many narcotic pain relievers also contain Tylenol/acetaminophen. Please ensure that your total dose of acetaminophen from all sources does not exceed 3 g (3000 mg) per day. Forms: PCP List Discharge Date/Time: 01/19/24 18:03
[2024-01-19 16:44] LABS: BACTERIA,URINE Many /HPF (None Seen); RBC,URINE TNTC /HPF (0-5); SQUAMOUS EPITHELIAL CELL,UR RARE Squamous (<= Few); WBC,URINE >25 /HPF (0-5)
[2024-01-19] MEDS: LIDOCAINE 1%-EPI 1:100000 20 ML MDV SUBQ STA (16:49)
[2024-01-19] MEDS: cefTRIAXone 1 GM VIAL IVP STA (16:49)
[2024-01-19] MEDS: HYDROmorphone 1 MG/ML CARPUJECT IVP STA ×2 (16:49→17:28)
[2024-01-19] MEDS: LIDOCAINE 1% 2 ML VIAL MC ONE (16:58)
[2024-01-19] MEDS: cefTRIAXone 1 GM VIAL IM STA (16:58)
[2024-01-19] MEDS: HYDROmorphone 1 MG/ML CARPUJECT IM STA (16:58)
--- NOTE | 2024-01-19 17:42 | XRAY Report ---
PROCEDURE: Post Thoracentesis 1V CXR INDICATIONS: post L thoracentesis TECHNIQUE: One view of the chest was acquired. COMPARISON: Same-day chest CT FINDINGS: Surgical changes and devices: None. Lungs and pleura: Left mid and lower lung opacities. Mild to moderate left pleural effusion. No pneu mothorax. Mediastinum: Heart borders are obscured. Overall heart size is probably normal. Bones and chest wall: Degenerative changes. IMPRESSION: Mild to moderate left pleural effusion. Left mid and lower lung opacities. No pneumothorax. Consider future imaging surveillance to assess for resolution. Reviewed by: Peng Johnson MD on 01/19/2024 5:41 PM PST Approved by: Peng Johnson MD on 01/19/2024 5:41 PM PST Station ID: [id number]
[2024-01-19 18:07] VITALS: BP 115/65; O2SAT 98
--- NOTE | 2024-01-21 18:33 | ED Physician Documentation ---
ED Addendum - Addendum Addendum: 01/21/24 18:32 Culture reviewed, he was sent home on keflex which is appropriate.
--- NOTE | 2024-01-26 11:46 | ED Physician Documentation ---
ED Addendum - Addendum Addendum: 01/26/24 11:45 Spoke with patient and shared results of pathology from the pleural fluid. In the interim I involved our cancer navigator who has contacted her PCP and arranged for urgent [facility] oncology appointment. She is also seeing the urologist today. She feels like her breathing is getting bad again and wonders if she can come in for repeat thoracentesis and discussed with her that she is welcome to do so, but going forward may benefit from a referral for IR once a susana of the necessity and timing of thoracentesis is elucidated.
== END 2024-01-19 18:03 | disposition home or self-care (01) ==
LOC: ED 15:20
DX: C78.2 Secondary malignant neoplasm of pleura (principal); J91.0 Malignant pleural effusion; C34.90 Malignant neoplasm of unspecified part of unspecified bronchus or lung; N39.0 Urinary tract infection, site not specified; R31.9 Hematuria, unspecified; N32.89 Other specified disorders of bladder; R91.8 Other nonspecific abnormal finding of lung field; R53.83 Other fatigue; D69.1 Qualitative platelet defects; K76.89 Other specified diseases of liver
CPT/HCPCS: 32554; 36415; 71260; 80053; 81001; 83690; 85025; 85027; 87077; 87086; 87181; 96374; 96375; 99284; J1170; Q9967; 81003

== ENCOUNTER 2024-01-26 08:00 | Outpatient (CLI) | payer MEDICARE | END 2024-01-26 23:59 | disposition home or self-care (01) | LOC: LAB 08:00 | PROVIDERS: ATTEND Urology | DX: N39.0 Urinary tract infection, site not specified (principal) | CPT/HCPCS: 87086 ==

== ENCOUNTER 2024-01-26 15:06 | Emergency (ER) | payer MEDICARE ==
[2024-01-26 15:24] VITALS: O2SAT 99
--- NOTE | 2024-01-26 15:43 | XRAY Report ---
PROCEDURE: Chest 1V INDICATIONS: pleural effusion TECHNIQUE: One view of the chest was acquired. COMPARISON: None. FINDINGS: Surgical changes and devices: None. Lungs and pleura: Moderate left pleural effusion. Biapical scarring. Increased pulmonary markings. P eribronchial cuffing. Mediastinum: Mediastinal contours appear normal. Heart size is normal. Bones and chest wall: No suspicious bony lesions. Overlying soft tissues appear unremarkable. IMPRESSION: Moderate left pleural effusion. Pulmonary edema. Reviewed by: Emery Cali MD on 01/26/2024 3:42 PM PDT Approved by: Emery Cali MD on 01/26/2024 3:42 PM PDT Station ID: [id number]
--- NOTE | 2024-01-26 17:15 | ED Physician Documentation ---
PD HPI DYSPNEA - Stated complaint Stated Complaint: SOA - Chief complaint Chief Complaint: Resp - History obtained from History obtained from: Patient - Additional information Additional information: 63-year-old woman with recent diagnosis of lung adenocarcinoma with left pleural effusion presents requesting thoracentesis for shortness of breath and chest pressure. 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: Hysterectomy, Oophrectomy - Present Medications Home Medications: Ambulatory Orders Medication Instructions Recorded Confirmed Atorvastatin [Lipitor] 10 mg pe ORAL DAILY 10/11/18 07/25/23 Sertraline HCl [Zoloft] 100 mg PO DAILY 10/11/18 07/25/23 Buprenorphine HCl [Belbuca] 300 mcg BC BID 07/25/23 07/25/23 Cyclobenzaprine HCl 5 mg PO TID PRN 07/25/23 07/25/23 Pantoprazole [Protonix] 40 mg PO BID 07/25/23 07/25/23 Trazodone HCl 100 mg PO HS 07/25/23 07/25/23 buPROPion HCL [Bupropion Xl] 150 mg PO DAILY 07/25/23 07/25/23 methocarbamoL [Robaxin] 500 mg PO Q6H PRN #20 tablet 07/25/23 methylPREDNISolone [Medrol] 4 mg PO DAILY #1 ea 07/25/23 HYDROcod/ACETAM 5/325 [[place] 5/325] 1 - 2 tab PO Q6H PRN #15 tablet 01/19/24 cephALEXin [Keflex] 500 mg PO Q6H #28 cap 01/19/24 - Allergies Allergies/Adverse Reactions: Allergies Allergy/AdvReac Type Severity Reaction Status Date / Time iodine Allergy Edema Verified 01/26/24 15:20 Penicillins Allergy Edema Verified 01/26/24 15:20 - Social History Does the pt smoke?: No Smoking Status: Never smoker Does the pt drink ETOH?: No Does the pt have substance abuse?: No - Immunizations Immunizations are current?: Yes - POLST Patient has POLST: Yes PD ED PE NORMAL - Vitals Vital signs reviewed: Yes - General General: Alert and oriented X 3 - Respiratory Respiratory: Other (Diminished left breath sounds, nonlabored) - Extremities Extremities: No edema, No calf tenderness / cord Results - Vitals Vitals: Vital Signs - 24 hr 01/26/24 15:15 Temperature 36.8 C Heart Rate 84 Respiratory 16 Rate Blood Pressure 119/67 O2 Saturation 99 Oxygen O2 Source Room air - Rads (name of study) Single view chest x-ray shows moderate left pleural effusion Relevant Findings:: Final report received, EMP independent interpretation of test Procedures - Thoracentesis - Major Preparation: Consent obtained, Sitting, Local - lidocaine Technique: Catheter over needle, Left Fluid: Other (750ml) Aftercare: CXR obtained Departure - Departure Disposition: Home, Self Care Clinical Impression: Pleural effusion Adenocarcinoma, lung Qualifiers: Laterality: left Qualified Code(s): C34.92 - Malignant neoplasm of unspecified part of left bronchus or lung Condition: Good Record reviewed to determine appropriate education?: Yes Instructions: Cancer Lung Dc Comments: Follow-up with oncology on Monday as scheduled. Return for new or worsening symptoms. Forms: PCP List
[2024-01-26] MEDS: HYDROmorphone 1 MG/ML CARPUJECT IM STA (17:37)
--- NOTE | 2024-01-26 17:37 | XRAY Report ---
PROCEDURE: Post Thoracentesis 1V CXR INDICATIONS: post thora L TECHNIQUE: One view of the chest was acquired. COMPARISON: Chest x-ray 01/26/2024 FINDINGS: Surgical changes and devices: Partially visualized thoracolumbar fixation rods. Lungs and pleura: Left effusion. No pneumothorax. Mediastinum: Mediastinal contours appear normal. Heart size is normal. Bones and chest wall: No suspicious bony lesions. Overlying soft tissues appear unremarkable. IMPRESSION: No pneumothorax status post thoracentesis. Reviewed by: Alisa Cifuentes MD on 01/26/2024 5:36 PM PDT Approved by: Alisa Cifuentes MD on 01/26/2024 5:36 PM PDT Station ID: [id number]
[2024-01-26 17:47] VITALS: BP 111/78
== END 2024-01-26 17:46 | disposition home or self-care (01) ==
LOC: ED 15:06
DX: C34.92 Malignant neoplasm of unspecified part of left bronchus or lung (principal); J90 Pleural effusion, not elsewhere classified
CPT/HCPCS: 32554; 71045; 96372; 99284; 99285; J1170

== ENCOUNTER 2024-02-01 12:57 | Day surgery (SDC) | payer MEDICARE ==
--- NOTE | 2024-02-01 10:42 | HISTORY & PHYSICAL EXAMINATION ---
HPI - History of Present Illness HPI Comment/Other: General Surgery Pre-op Admitting History and Physical ASSESSMENT: 1) Stage 4 lung cancer in need of venous access PLAN: 1) Mediport placement under local anesthesia with Monitored IV sedation CONSENT: Mone has been counseled for the procedure, it's indications, risks, benefits and expected outcome as well as alternative therapies. We specifically discussed risks associated with anesthesia, bleeding, infection, injury to surrounding structures which may require additional surgery (pneumothorax), and possible failure of the catheter over time due to clotting and/or dislodgement among other reasons. Mone understands that we will attempt to place the catheter in the left upper chest but if the left subclavian vein is not available due to tumor, the catheter will be placed in the upper right chest. Mone understands, agrees, and consents to the proposed operative strategy and requests that we proceed with the procedure as outlined in our discussion. <><><><><> Chief Complaint Request for central venous access HPI Mone is a 63 year old female with recently diagnosed stage 4 lung cancer with recurrent left pleural effusions requiring thoracentesis. I am asked to place a central catheter with a subcutaneous port for chemotherapy and blood draws. The Past Family, Social and Personal History has been reviewed with the patient. Anticoagulant use: None ROS Pertinent positives Mild SOB improved since thoracentesis left chest All other reviewed systems negative Physical Examination: Vital Signs: Stable; Afeb BMI: 19 GENERAL APPEARANCE: Normal development, normal body habitus, normal grooming PSYCHIATRIC: AAO; Comfortable and calm demeanor EYES: Pupils equal, round and reactive to light, sclera anicteric, EARS, NOSE, MOUTH, THROAT: Normal hearing, Oral mucous membranes moist and without lesions; Teeth in good repair NECK: No crepitus, lymphadenopathy, or thyromegaly; Right external jugular vein distends in Trendelenburg; Left does not. LUNGS: Clear to auscultation without wheezing on anterior exam; No use of accessory muscles to breathe CARDIOVASCULAR: Heart-NSR without murmurs; Palpable carotid arteries ABD: Soft; Non-distended; No masses; No tenderness; + BS LYMPHATIC: Neck, Axillae, Groin without palpable adenopathy EXTREMITIES: No clubbing, cyanosis, infections SKIN: Anicteric; No rashes, lesions, Ulcerations IMAGING 01/26/24 CXR - no pneumothorax after thoracentesis. 01/19/24 - CT chest - 7 mm supraclavicular lymph nodes present All images were personally reviewed by me for this encounter. 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: positive: None : positive: Other HEENT: positive: Chronic vision loss, Other Psych: positive: Depression, Anxiety Musculoskeletal: positive: Osteoarthritis, Fatigue, Chronic back pain Derm: positive: None MRSA Hx?: No - Past Surgical History General: positive: Appendectomy Ortho: positive: Other /DIRECTOR PROFESSIONAL SERVICES: positive: Hysterectomy, Oophrectomy Social & Family Hx - Social History Does the pt smoke?: No Smoking Status: Never smoker Does the pt drink ETOH?: No Does the pt have substance abuse?: No Substance Use and Type: CBD oil / Products - POLST Patient has POLST: Yes Meds/Allgy - Home Medications Home Medications: Ambulatory Orders Medication Instructions Recorded Confirmed Atorvastatin [Lipitor] 40 mg pe ORAL DAILY 10/11/18 01/31/24 Sertraline HCl [Zoloft] 100 mg PO DAILY 10/11/18 01/31/24 Buprenorphine HCl [Belbuca] 300 mcg BC TID 07/25/23 01/31/24 Pantoprazole [Protonix] 40 mg PO BID 07/25/23 01/31/24 Trazodone HCl 100 mg PO HS 07/25/23 01/31/24 methocarbamoL [Robaxin] 500 mg PO Q6H PRN #20 tablet 07/25/23 01/31/24 HYDROcod/ACETAM 5/325 [[place] 5/325] 1 - 2 tab PO Q6H PRN #15 tablet 01/19/24 01/31/24 Varenicline Tartrate 1 mg PO BID 01/29/24 01/31/24 busPIRone [Buspar] 30 mg PO DAILY 01/29/24 01/31/24 - Allergies Allergies/Adverse Reactions: Allergies Allergy/AdvReac Type Severity Reaction Status Date / Time iodine Allergy Edema Verified 01/29/24 17:00 Penicillins Allergy Edema Verified 01/29/24 17:00
[2024-02-01] MEDS: LACTATED RINGERS 1,000 ML IV ONE (13:16)
[2024-02-01] MEDS ORDERED: BUPIVACAINE 0.25% PF 10 ML VIAL ONE (13:39)
[2024-02-01] MEDS ORDERED: LIDOCAINE 1%-EPI 1:100000 20 ML MDV ONE (13:39)
[2024-02-01] MEDS: BUPIVACAINE 0.25% PF 10 ML VIAL SUBQ ONE ×2 (14:13)
[2024-02-01] MEDS: LIDOCAINE 1%-EPI 1:100000 20 ML MDV SUBQ ONE ×2 (14:14)
--- NOTE | 2024-02-01 14:17 | ANESTHESIA ---
Pre-Anesthesia VS, & Labs - Diagnosis lung cancer - Procedure mediport placement Vital Signs: Temp Pulse Resp BP Pulse Ox O2 Flow Rate 36.7 C 95 11 L 108/61 96 02/01/24 13:16 02/01/24 13:16 02/01/24 13:16 02/01/24 13:16 02/01/24 13:16 Height: 5 ft 4 in Weight (kg): 50.8 kg Body Mass Index: 19.2 BMI Classification: Normal - NPO >8 hours - Is Patient ?: No Home Medications and Allergies Atorvastatin [Lipitor] 40 mg pe ORAL DAILY 10/11/18 Sertraline HCl [Zoloft] 100 mg PO DAILY 10/11/18 Buprenorphine HCl [Belbuca] 300 mcg BC TID 07/25/23 Pantoprazole [Protonix] 40 mg PO BID 07/25/23 Trazodone HCl 100 mg PO HS 07/25/23 Varenicline Tartrate 1 mg PO BID 01/29/24 busPIRone [Buspar] 30 mg PO DAILY 01/29/24 Allergies/Adverse Reactions: Allergies Allergy/AdvReac Type Severity Reaction Status Date / Time iodine Allergy Edema Verified 01/29/24 17:00 Penicillins Allergy Edema Verified 01/29/24 17:00 Anes History & Medical History - Anesthetic History Anesthesia Complications: reports: No previous complications - Medical History Cardiovascular: reports: High cholesterol Pulmonary: reports: COPD, Shortness of breath, Other Gastrointestinal: reports: GERD, Other Urinary: reports: Other Neuro: reports: None Musculoskeletal: reports: Osteoarthritis, Fatigue, Chronic back pain Endocrine/Autoimmune: reports: None Blood Disorders: reports: None Skin: reports: None Smoking Status: Former smoker History of Cancer?: Yes - Surgical History General: reports: Appendectomy Gynecologic: reports: Hysterectomy, Oophrectomy Orthopedic: reports: Other Exam General: Alert, Oriented x3, Cooperative Dental: WNL, Dentures full Upper Mouth Opening: Greater than 4 Fingerbreadths Neck Mobility: Normal Mallampati classification: I Thyromental Distance: greater than 6 cm Respiratory: Decreased breath sounds (on left) Cardiovascular: Regular rate, Normal S1, Normal S2 Plan Anesthesia Type: Total IV Consent for Procedure(s) Verified and Reviewed: Yes Code Status: Attempt Resuscitation ASA classification: 3-Severe systemic disease Is this case an emergency?: No
[2024-02-01] MEDS ORDERED: fentaNYL 100 MCG/2 ML VIAL ONE (14:27)
[2024-02-01] MEDS ORDERED: LIDOCAINE-PF 2% 10 ML AMP SUBQ ONE (14:30)
[2024-02-01] MEDS ORDERED: KETAMINE 200 MG/20 ML VIAL ONE (14:43)
[2024-02-01] MEDS ORDERED: PROPOFOL 500 MG/50 ML 500 MG/50 ML VIAL ONE (14:44)
[2024-02-01] MEDS ORDERED: CLINDAMYCIN 900 MG/50 ML 900 MG/50 ML BAG IV ONE (14:57)
[2024-02-01] MEDS: LACTATED RINGERS 750 ML IV ONE (15:50)
--- NOTE | 2024-02-01 15:53 | OPERATIVE REPORT ---
Operative Report - Other Other Information/Narrative: PROCEDURE DATE: 02/01/2024 PREOPERATIVE DIAGNOSIS: Mone is a 63 year old female with Stage 4 lung cancer. I am asked to perform central venous access using an implantable catheter infusion device. POSTOPERATIVE DIAGNOSIS: Same NAME OF PROCEDURE: Placement of a single lumen PowerPort infusion catheter into the superior vena cava via a left cephalic vein cutdown. SURGEON: Zander Wright MD, FACS SPEECH AND LANGUAGE TUTOR SURGEON: None ANESTHESIA: Local with monitored sedation COMPLICATIONS: None ESTIMATED BLOOD LOSS: 3 ml DRAINS: None SPECIMEN: none FINDINGS: Normal anatomy DESCRIPTION OF OPERATION IS FOLLOWS: After consent for the procedure was obtained, the patient was brought to the operating room, where a surgical time- out was performed, indicating the patient and the procedure to be performed. A rolled towel was placed between the shoulder blades. The anterior chest wall, right and left sides, were prepped with chlorhexidine and draped in a sterile fashion. The left arm was placed at the side, and both right and left chest wall were exposed. 1% lidocaine with epinephrine in a 50/50 mix with 1/4% marcaine was used for local anesthesia throughout the procedure. An incision was made in the skin over the left deltopectoral groove and after the subcutaneous tissue was dissected and the deltopectoral groove was identified, the cephalic vein was identified deep within the deltopectoral groove. The cephalic vein was ligated distally with a 3-0 silk ligature and encircled proximally with a 3-0 silk ligature. A venotomy was made and a single lumen PowerPort catheter which had been previously flushed with heparinized saline was placed into the vein. Using fluoroscopy the catheter tip was advanced into the superior vena cava. The proximal 3-0 silk ligature was then use to secure the catheter to the cephalic vein and the catheter was checked to make sure it was not crimped by the 3-0 silk ligature. It easily aspirated blood and infused heparinized saline. The back wall of the cephalic vein was then transected. A subcutaneous pocket was created at the cutdown incision site using Metzenbaum scissors. The catheter was cut to the appropriate length and attached to the port using the accompanying flange The port was sutured to the pectoralis major muscle and fascia using interrupted 2-0 Prolene suture after the port was placed into the pocket. The port was checked in this position and it aspirated blood and easily instilled heparinized saline. The incision was closed using a running 4-0 Vicryl suture for the subcutaneous tissue. The skin was closed with a running 4-0 Vicryl subcuticular suture with Steri-Strips to reinforce the epidermis. The port again was checked for patency after the skin incision was closed and it functioned appropriately. The site of puncture was marked with indelible ink. Dressings were placed. The patient tolerated the procedure well and was brought to the recovery room with stable vital signs.
[2024-02-01] MEDS: ONDANSETRON 4 MG/2 ML VIAL ONE (15:55)
[2024-02-01] MEDS ORDERED: ONDANSETRON 4 MG/2 ML VIAL IVP ONE (15:55)
[2024-02-01 16:36] VITALS: BP 100/55; O2SAT 96
--- NOTE | 2024-02-01 16:52 | XRAY Report ---
PROCEDURE: OR C-Arm Procedure INDICATIONS: PORTACATH PLACEMENT FLUORO TIME: 000.0 TECHNIQUE: Intraoperative image. COMPARISON: None. FINDINGS: Labeled right side of the chest demonstrates overlying catheter tubing suspected to be related to Por t-A-Cath given history. It is overlying the proximal SVC. IMPRESSION: Limited evaluation of presumed Port-A-Cath placement as above. Reviewed by: Alisa Cifuentes MD on 02/01/2024 4:51 PM PDT Approved by: Alisa Cifuentes MD on 02/01/2024 4:51 PM PDT Station ID: [id number]
--- NOTE | 2024-02-01 20:51 | ANESTHESIA POST OP EVALUATION ---
Anesthesia Post Eval - Post Anesthesia Eval Vitals: Last Vital Signs Temp 36.2 C L 02/01/24 15:50 Pulse 64 02/01/24 16:20 Resp 16 02/01/24 16:20 BP 100/55 L 02/01/24 16:20 Pulse Ox 96 02/01/24 16:20 O2 Flow Rate CV Function Including HR & BP: Stable Pain Control: Satisfactory Nausea & Vomiting: Negative Mental Status: Baseline Respiratory Status: Airway Patent Hydration Status: Satisfactory Anesthesia Complications: None
== END 2024-02-01 12:58 | disposition home or self-care (01) ==
LOC: SDS 12:57
PROVIDERS: ATTEND Surgery
DX: C34.90 Malignant neoplasm of unspecified part of unspecified bronchus or lung (principal); J44.9 Chronic obstructive pulmonary disease, unspecified; Z87.891 Personal history of nicotine dependence
CPT/HCPCS: 36561; J3490; J7120

== ENCOUNTER 2024-02-06 10:59 | Emergency (ER) | payer MEDICARE ==
--- NOTE | 2024-02-06 11:59 | XRAY Report ---
PROCEDURE: Chest 2V INDICATIONS: SOA TECHNIQUE: 2 views of the chest were acquired. COMPARISON: Single view the chest dated 01/26/2024 FINDINGS: Surgical changes and devices: There is a new left Port-A-Cath, the tip of which is projected over th e distal SVC. Lungs and pleura: Moderate sized left pleural effusion is redemonstrated. Peripheral interlobular se ptal thickening suggests underlying fibrotic changes. More central interlobular septal thickening wit hin the aerated left lung suggests a component of edema or lymphangitic carcinomatosis. Mediastinum: Mediastinal contours appear normal. Heart size is normal. Bones and chest wall: No suspicious bony lesions. Overlying soft tissues appear unremarkable. IMPRESSION: 1. Moderate left pleural effusion similar in size to the study dated 01/26/2024. 2. Findings suspicious for left pulmonary edema versus lymphangitic carcinomatosis. Reviewed by: Silva Bowman MD on 02/06/2024 11:57 AM PDT Approved by: Silva Bowman MD on 02/06/2024 11:57 AM PDT Station ID: [id number]
[2024-02-06 14:37] VITALS: BP 122/77; O2SAT 96
[2024-02-06] MEDS: HYDROmorphone 1 MG/ML CARPUJECT IM STA (14:45)
--- NOTE | 2024-02-06 15:06 | XRAY Report ---
PROCEDURE: Post Thoracentesis 1V CXR INDICATIONS: post thoracentesis TECHNIQUE: One view of the chest was acquired. COMPARISON: 02/06/2024 and 01/26/2024. FINDINGS: Surgical changes and devices: Left chest wall Port-A-Cath tip is in SVC. Surgical clips are noted al tony left lower neck soft tissue.. Lungs and pleura: There is interval decrease in amount of left-sided pleural effusion consistent wit h interval thoracentesis. There is small residual left pleural effusion and left basilar atelectasis. Mild pulmonary edema is seen. No gross pneumothorax Mediastinum: Mediastinal contours appear normal. Heart size is normal. Bones and chest wall: No suspicious bony lesions. Overlying soft tissues appear unremarkable. IMPRESSION: Interval left thoracentesis with decrease in amount of left-sided pleural effusion. Small residual le ft pleural effusion and left basilar atelectasis. Mild pulmonary edema. No gross pneumothorax. Reviewed by: Bayron Bo MD on 02/06/2024 3:05 PM PDT Approved by: Bayron Bo MD on 02/06/2024 3:05 PM PDT Station ID: [id number]
--- NOTE | 2024-02-06 15:13 | ED Physician Documentation ---
History of Present Illness - Stated complaint Stated Complaint: SOA - Chief complaint Chief Complaint: Resp - Additonal information Additional information: 63-year-old female presents emergency department for shortness of breath. Patient has stage IV lung cancer. Patient has been here twice prior to this visit for pleural effusion last ER visit was 01/26/2024 where she says there were a liter was removed from her left lung. She says that she has been trying to put this off for as long as possible and feels like she is unable to manage her symptoms at home anymore and is hoping to have a thoracentesis to help with symptom relief. No fevers or chills no chest pain. 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 : Other HEENT: Chronic vision loss, Other Psych: Depression, Anxiety Musculoskeletal: Osteoarthritis, Fatigue, Chronic back pain Derm: None - Past Surgical History Past Surgical History: Yes General: Appendectomy Ortho: Other /GAS COMPRESSOR OPERATOR: Hysterectomy, Oophrectomy - Present Medications Home Medications: Ambulatory Orders Medication Instructions Recorded Confirmed Atorvastatin [Lipitor] 40 mg pe ORAL DAILY 10/11/18 02/05/24 Sertraline HCl [Zoloft] 100 mg PO DAILY 10/11/18 02/05/24 Buprenorphine HCl [Belbuca] 300 mcg BC TID 07/25/23 02/05/24 Pantoprazole [Protonix] 40 mg PO BID 07/25/23 02/05/24 Trazodone HCl 100 mg PO HS 07/25/23 02/05/24 methocarbamoL [Robaxin] 500 mg PO Q6H PRN #20 tablet 07/25/23 02/05/24 HYDROcod/ACETAM 5/325 [[place] 5/325] 1 - 2 tab PO Q6H PRN #15 tablet 01/19/24 02/05/24 Varenicline Tartrate 1 mg PO BID 01/29/24 02/05/24 busPIRone [Buspar] 30 mg PO DAILY 01/29/24 02/05/24 - Allergies Allergies/Adverse Reactions: Allergies Allergy/AdvReac Type Severity Reaction Status Date / Time iodine Allergy Edema Verified 02/06/24 11:08 Penicillins Allergy Edema Verified 02/06/24 11:08 - Social History Does the pt smoke?: No Smoking Status: Never smoker Does the pt drink ETOH?: No Does the pt have substance abuse?: No - Immunizations Immunizations are current?: Yes - POLST Patient has POLST: Yes PD ED PE NORMAL - Vitals Vital signs reviewed: Yes - General General: Alert and oriented X 3, No acute distress, Well developed/nourished - HEENT HEENT: Atraumatic, PERRL - Cardiac Cardiac: RRR, No murmur - Respiratory Respiratory: No respiratory distress, Clear bilaterally, Other (Diminished left lung sounds) - Back Back: No CVA TTP - Derm Derm: Normal color, Warm and dry, No rash Results - Vitals Vitals: Vital Signs - 24 hr 02/06/24 02/06/24 02/06/24 11:00 13:07 14:36 Temperature 36.4 C L Heart Rate 66 59 L 76 Respiratory 16 16 20 Rate Blood Pressure 120/67 102/66 122/77 O2 Saturation 99 97 96 Oxygen O2 Source Room air - Rads (name of study) 2 view chest x-ray Relevant Findings:: Final report received, EMP independent interpretation of test, Other (Moderate left pleural effusion similar to when patient was here 01/25.) Postthoracentesis chest x-ray Relevant Findings:: Final report received, EMP independent interpretation of test, Other (Decreased amount of left sided pleural effusion no pneumothorax) PD Medical Decision Making - ED course ED course: 63-year-old female presents emergency department for concerns of shortness of breath. Patient does appear to have a large pleural effusion on chest x-ray the findings that are chest x-ray are showing are similar to when patient was here 01/26/2024. I called the patient's oncologist Dr. Verma and informed her of patient's frequent visits to the emergency department for thoracentesis and she agreed that patient would benefit from having scheduled thoracentesis outpatient so this has been arranged on a weekly basis and patient has been informed of these updates. Dr. Carvajal was kind enough to do a thoracentesis on my behalf for the patient we got about 750 cc of fluid off of her left lung and she did report she had significant improvement of her symptoms. Repeat chest x-ray was done which showed decrease amount of pleural effusion on the left side with a small residual. Patient told to call her oncology office tomorrow to discuss how to check in for her thoracentesis next week and she is given ER return precautions. Patient is eager to discharge home I do not believe there is any further emergent workup indicated at this time. Departure - Departure Disposition: 01 Home, Self Care Clinical Impression: Pleural effusion, S/P thoracentesis Lung cancer Qualifiers: Laterality: left Lung location: upper lobe of lung Qualified Code(s): C34.12 - Malignant neoplasm of upper lobe, left bronchus or lung Instructions: Effusion Pleural, Thoracentesis Dc Comments: Thank you for trusting us with your care, we have evaluated you for your shortness of breath. We have completed a thoracentesis of your left lung and we have removed about 750 cc of fluid. I have reached out to your oncology clinic please call them as they are going to start setting up routine thoracentesis for you outpatient to prevent you from continuing to have to come to the emergency department for these. Please come back to the emergency department if you are starting to develop any shortness of breath, chest pain, nausea vomiting, or any other concerning symptoms. Forms: PCP List Discharge Date/Time: 02/06/24 15:21
--- NOTE | 2024-02-06 15:47 | ED Physician Documentation ---
ED Addendum - Addendum Addendum: 02/06/24 15:42 I was asked to assist in care by my coworker to do a thoracentesis for the patient with recurring effusion related to cancer effusion. The patient has had 2 prior thoracentesis of approximately 700 to 1000 mL with improvement in her dyspnea. She has had feeling of dyspnea and orthopnea again over the last several days. Her oncologist has not yet set up regular scheduled outpatient thoracenteses as yet. After discussion of the patient with risks benefits and alternatives of which she was familiar having had this done twice before, she gave consent to the procedure. With bedside ultrasound I localized the effusion on the left that was visible on chest x-ray. The area was prepped and cleaned with Chloraseptic. Local anesthetic was placed. I entered just above the 10th rib posteriorly with getting slightly blood-tinged but clear fluid out. It was placed to suction and fluid was removed until the patient started having pleuritic pain suggesting the area was reexpanded and that area. The catheter was removed. A total of 750 cc was obtained between the bottle and the initial syringe. The patient was feeling better breathing though had some pleuritic pain at first. She was given a milligram of Dilaudid to help with that. This did provide improvement. Postprocedure chest x-ray showed a diminishing of the amount of effusion. No pneumothorax was seen. Procedure: Therapeutic thoracentesis on the left
== END 2024-02-06 15:21 | disposition home or self-care (01) ==
LOC: ED 10:59
DX: J90 Pleural effusion, not elsewhere classified (principal); C34.12 Malignant neoplasm of upper lobe, left bronchus or lung; J44.9 Chronic obstructive pulmonary disease, unspecified; M19.90 Unspecified osteoarthritis, unspecified site; E78.00 Pure hypercholesterolemia, unspecified; Z79.899 Other long term (current) drug therapy
CPT/HCPCS: 32554; 71046; 96372; 99283; 99284; J1170

== ENCOUNTER 2024-02-13 07:18 | Day surgery (SDC) | payer MEDICARE ==
[2024-02-13] MEDS: LACTATED RINGERS 1,000 ML IV ONE (07:26)
[2024-02-13] MEDS ORDERED: CIPROFLOXACIN 400 MG/200 ML 400 MG/200 ML BAG IV ONE (07:32)
[2024-02-13] MEDS ORDERED: PROPOFOL 200 MG/20 ML VIAL IVP ONE (08:06)
[2024-02-13] MEDS ORDERED: ROCURONIUM 50 MG/5 ML VIAL ONE (08:06)
[2024-02-13] MEDS ORDERED: fentaNYL 100 MCG/2 ML VIAL ONE ×2 (08:07→09:47)
[2024-02-13] MEDS ORDERED: MIDAZOLAM 2 MG/2 ML VIAL ONE (08:07)
[2024-02-13] MEDS ORDERED: LIDOCAINE 2% URO-JET 5 ML SYRINGE UR ONE (08:18)
[2024-02-13] MEDS ORDERED: fentaNYL 100 MCG/2 ML VIAL IVP PRN (08:36)
[2024-02-13] MEDS ORDERED: ePHEDrine 50 MG/ML VIAL IVP PRN (08:36)
[2024-02-13] MEDS ORDERED: NALOXONE 0.4 MG/ML VIAL IVP PRN (08:36)
[2024-02-13] MEDS ORDERED: ATROPINE ABBOJECT 1 MG/10 ML SYRINGE IVP PRN (08:36)
[2024-02-13] MEDS ORDERED: MORPHINE 2 MG/ML CARPUJECT IVP PRN (08:36)
[2024-02-13] MEDS ORDERED: HYDROmorphone 0.5 MG/0.5 ML SYRINGE IVP PRN (08:36)
[2024-02-13] MEDS ORDERED: ONDANSETRON 4 MG/2 ML VIAL IVP PRN ×2 (08:36→09:55)
--- NOTE | 2024-02-13 08:37 | ANESTHESIA ---
Pre-Anesthesia VS, & Labs - Diagnosis bladder CA - Procedure TURBT Vital Signs: Temp Pulse Resp BP Pulse Ox O2 Flow Rate 36.3 C L 80 20 120/79 93 02/13/24 07:38 02/13/24 07:38 02/13/24 07:38 02/13/24 07:38 02/13/24 07:38 Height: 5 ft 4.5 in Weight (kg): 50.6 kg Body Mass Index: 18.8 BMI Classification: Normal - NPO >8 hours - Is Patient ?: No Home Medications and Allergies Atorvastatin [Lipitor] 40 mg pe ORAL DAILY 10/11/18 Sertraline HCl [Zoloft] 100 mg PO DAILY 10/11/18 Buprenorphine HCl [Belbuca] 300 mcg BC TID 07/25/23 Pantoprazole [Protonix] 40 mg PO BID 07/25/23 Trazodone HCl 100 mg PO HS 07/25/23 Varenicline Tartrate 1 mg PO BID 01/29/24 busPIRone [Buspar] 30 mg PO DAILY 01/29/24 Folic Acid 1 tab PO DAILY 02/12/24 Allergies/Adverse Reactions: Allergies Allergy/AdvReac Type Severity Reaction Status Date / Time iodine Allergy Edema Verified 02/13/24 07:35 Penicillins Allergy Edema Verified 02/13/24 07:35 Anes History & Medical History - Anesthetic History Anesthesia Complications: reports: No previous complications Family history of Anesthesia Complications: Denies Family history of Malignant Hyperthermia: Denies - Medical History Cardiovascular: reports: High cholesterol Pulmonary: reports: COPD, Shortness of breath, Other Gastrointestinal: reports: GERD, Other Urinary: reports: Other Neuro: reports: None Musculoskeletal: reports: Osteoarthritis, Fatigue, Chronic back pain Endocrine/Autoimmune: reports: None Blood Disorders: reports: None Skin: reports: None Smoking Status: Never smoker Psychosocial: reports: No issues indicated - Surgical History General: reports: Appendectomy Gynecologic: reports: Hysterectomy, Oophrectomy Orthopedic: reports: Other Exam General: Alert, Oriented x3, Cooperative Dental: Dentures full Upper Mouth Openin Fingerbreadth Neck Mobility: Normal Mallampati classification: II Thyromental Distance: 4-6 cm Respiratory: Lungs clear Cardiovascular: Regular rate Plan Anesthesia Type: General Consent for Procedure(s) Verified and Reviewed: Yes Code Status: Attempt Resuscitation ASA classification: 4-Incapacitating disease Is this case an emergency?: No
[2024-02-13] MEDS ORDERED: ePHEDrine 50 MG/ML VIAL IVP ONE (08:57)
[2024-02-13] MEDS ORDERED: LACTATED RINGERS 1,000 ML IV SCH (09:00)
[2024-02-13] MEDS: LIDOCAINE 2% URO-JET 5 ML SYRINGE UR ONE (09:12)
[2024-02-13] MEDS ORDERED: SUGAMMADEX 200 MG/2 ML VIAL IVP ONE (09:12)
[2024-02-13] MEDS ORDERED: ONDANSETRON 4 MG/2 ML VIAL ONE (09:36)
[2024-02-13] MEDS ORDERED: DEXAMETHASONE 4 MG/ML VIAL ONE (09:36)
[2024-02-13] MEDS: LACTATED RINGERS 400 ML IV ONE (09:55)
--- NOTE | 2024-02-13 10:01 | Discharge Plan ---
Discharge Plan Problem Reviewed?: Yes Disposition: Home, Self Care Prescriptions: Docusate Sodium 100Mg Capsule [Colace 100Mg Capsule] 100 mg PO DAILY #7 cap HYDROcod/ACETAM 5/325 [[place] 5/325] 1 tab PO Q4H PRN #10 tablet PRN Reason: Pain Diet: Regular Activity Restrictions: Additional Comments (as instructed) Shower Restrictions: No Driving Restrictions: No (no driving while taking narcotic pain medications) Instruction Topics: Transureth Bladder Tumor Resect Dc Additional Instructions or Follow Up instructions: You will be contacted for follow-up in the next [address] Lyons No Smoking: If you smoke, Please STOP! Call for help. Follow-up with: Rhett Lyons MD [Provider Admit Priv/Credential] -
--- NOTE | 2024-02-13 10:03 | OPERATIVE REPORT ---
Operative Report - General Planned Procedure: Transurethral resection of bladder tumor Pre-Op Diagnosis: Bladder mass Procedure Performed: Transurethral resection of bladder tumor 3cm Post Op Diagnosis: Bladder mass - Procedure Note Primary Surgeon: Eloy Anesthesia Provider: DEBORAH Graf Pathology: bladder tumor Estimated Blood Loss (mL): 10 Indications: Bladder mass seen on imaging Findings: 3cm lateral wall, sessile and pedunculated attached to posterior left wall EUA negative Complications: none - Other Other Information/Narrative: After informed sent was obtained the patient brought to the OR and laid in the supine position. The patient was anesthetized per anesthesia protocols and prepped draped in usual sterile fashion in the dorsolithotomy position. A formal timeout was performed confirming the patient and procedure. A 26 Khmer scope was advanced easily into urinary bladder. The bladder was inspected and full. She had a large sessile cauliflower-like mass emanating from the left posterior bladder wall it was 3 cm in size. Using loop electrode on the bipolar setting we resected this mass down to its stalk and then resected it off of the bladder wall itself. The specimen was removed and sent for analysis. Cautery was used to fulgurate any bleeding areas. There was excellent hemostasis at the end. An exam under anesthesia was performed and showed no palpable 3D masses. A Uro-Jet was placed. This concluded the procedure and the patient tolerated the procedure well. She was brought to the PACU without further incident. She will follow-up in 2 to 3 weeks time for pathology discussion
[2024-02-13] MEDS ORDERED: HYDROcod/ACETAM 5/325 MG TABLET ONE (10:30)
[2024-02-13] MEDS: HYDROcod/ACETAM 5/325 MG TABLET PO PRN (10:31)
[2024-02-13] MEDS: PHENAZOPYRIDINE 100 MG TABLET PO SCH (10:45)
[2024-02-13] MEDS ORDERED: PHENAZOPYRIDINE 100 MG TABLET PO ONE (10:46)
[2024-02-13 10:53] VITALS: BP 8/59; O2SAT 98
--- NOTE | 2024-02-13 19:00 | ANESTHESIA POST OP EVALUATION ---
Anesthesia Post Eval - Post Anesthesia Eval Vitals: Last Vital Signs Temp 37.1 C 02/13/24 10:15 Pulse 58 L 02/13/24 10:51 Resp 6 L 02/13/24 10:51 BP 8/59 L 02/13/24 10:51 Pulse Ox 98 02/13/24 10:51 O2 Flow Rate CV Function Including HR & BP: Stable Pain Control: Satisfactory Nausea & Vomiting: Negative Mental Status: Baseline Respiratory Status: Airway Patent Hydration Status: Satisfactory Anesthesia Complications: None
== END 2024-02-13 07:19 | disposition home or self-care (01) ==
LOC: SDS 07:18
PROVIDERS: ATTEND Urology
PROC: 0TBB8ZX Excision of Bladder, Via Natural or Artificial Opening Endoscopic, Diagnostic (ICD-10-PCS; principal; 2024-02-13 08:30)
DX: C67.4 Malignant neoplasm of posterior wall of bladder (principal); J44.9 Chronic obstructive pulmonary disease, unspecified; F17.200 Nicotine dependence, unspecified, uncomplicated; J90 Pleural effusion, not elsewhere classified
CPT/HCPCS: 52235; A9270; J7120

== ENCOUNTER 2024-02-19 08:00 | Outpatient (CLI) | payer MEDICARE | END 2024-02-19 23:59 | disposition home or self-care (01) | LOC: PC 08:00 | PROVIDERS: ATTEND Nurse Practitioner Adult Health | DX: Z51.5 Encounter for palliative care (principal); G89.3 Neoplasm related pain (acute) (chronic); C34.90 Malignant neoplasm of unspecified part of unspecified bronchus or lung; J90 Pleural effusion, not elsewhere classified; K59.03 Drug induced constipation; J44.9 Chronic obstructive pulmonary disease, unspecified; F41.9 Anxiety disorder, unspecified; N32.9 Bladder disorder, unspecified; M25.511 Pain in right shoulder; M25.512 Pain in left shoulder; R59.0 Localized enlarged lymph nodes; Z87.891 Personal history of nicotine dependence; Z66 Do not resuscitate; R63.0 Anorexia | CPT/HCPCS: 99205 ==

== ENCOUNTER 2024-02-23 13:42 | Outpatient (CLI) | payer MEDICARE ==
--- NOTE | 2024-02-23 15:17 | Ultrasound Report ---
PROCEDURE: Thoracentesis Puncture INDICATIONS: LUNG CA TECHNIQUE: The indications, alternatives, benefits, risks, and complications of the procedure were explained to the patient. Written informed consent was obtained and placed in the chart. The chest was examined sonographically, and an appropriate site was chosen for thoracentesis. The skin was prepared and cristi ped in the usual sterile fashion, and 1% lidocaine was infiltrated from the skin down through the ple ural surface. A 19-gauge catheter-covered needle was then introduced into the pleural space, the cat heter was advanced and the needle was withdrawn, and thereafter pleural fluid was aspirated. The cat heter was then removed and a dressing was applied. COMPARISON: None. FINDINGS: Access site: Left hemithorax. Needle: One-Step centesis catheter with introducer needle. Fluid volume and description: 650 cc hemorrhagic pleural fluid Fluid sent for diagnostic testing: No Medications: 1% lidocaine for local anaesthesia. Complications: None; post-procedural chest radiograph is pending to assess for pneumothorax. IMPRESSION: Successful ultrasound-guided thoracentesis. Reviewed by: Claudette Flores MD on 02/23/2024 3:16 PM PDT Approved by: Claudette Flores MD on 02/23/2024 3:16 PM PDT Station ID: [id number]
== END 2024-02-23 13:43 | disposition home or self-care (01) ==
LOC: DI 13:42
PROVIDERS: ATTEND Internal Medicine Hematology & Oncology
DX: C34.90 Malignant neoplasm of unspecified part of unspecified bronchus or lung (principal)
CPT/HCPCS: 32555

== ENCOUNTER 2024-02-29 14:14 | Outpatient (CLI) | payer MEDICARE ==
--- NOTE | 2024-03-01 16:47 | Ultrasound Report ---
PROCEDURE: Chest INDICATIONS: LUNG CA TECHNIQUE: Real-time scanning was performed of the left chest. COMPARISON: None. FINDINGS: Mild complex fluid is present. IMPRESSION: Mild complex fluid. Reviewed by: Alisa Cifuentes MD on 03/01/2024 4:45 PM PDT Approved by: Alisa Cifuentes MD on 03/01/2024 4:45 PM PDT Station ID: [id number]
== END 2024-02-29 14:15 | disposition home or self-care (01) ==
LOC: DI 14:14
PROVIDERS: ATTEND Internal Medicine Hematology & Oncology
DX: C34.90 Malignant neoplasm of unspecified part of unspecified bronchus or lung (principal)

== ENCOUNTER 2024-03-11 08:00 | Outpatient (CLI) | payer MEDICARE | END 2024-03-11 23:59 | disposition home or self-care (01) | LOC: PC 08:00 | PROVIDERS: ATTEND Nurse Practitioner Adult Health | DX: Z51.5 Encounter for palliative care (principal); G89.3 Neoplasm related pain (acute) (chronic); C67.9 Malignant neoplasm of bladder, unspecified; C34.32 Malignant neoplasm of lower lobe, left bronchus or lung; J44.9 Chronic obstructive pulmonary disease, unspecified; Z66 Do not resuscitate; G89.29 Other chronic pain; R63.0 Anorexia; R53.83 Other fatigue; K59.03 Drug induced constipation | CPT/HCPCS: 99215 ==

== ENCOUNTER 2024-03-12 08:00 | Outpatient (CLI) | payer MEDICARE | END 2024-03-12 23:59 | disposition home or self-care (01) | LOC: PC 08:00 | PROVIDERS: ATTEND Nurse Practitioner Adult Health | DX: Z51.5 Encounter for palliative care (principal); C34.90 Malignant neoplasm of unspecified part of unspecified bronchus or lung | CPT/HCPCS: 99426; 99427 ==

== ENCOUNTER 2024-03-27 13:54 | Outpatient (CLI) | payer MEDICARE ==
--- NOTE | 2024-03-27 16:37 | Ultrasound Report ---
PROCEDURE: Chest INDICATIONS: LUNG CA TECHNIQUE: Real-time scanning was performed, and a suitable site was marked by the fur blower operator for thoracentesis to be performed by the referring clinician. COMPARISON: Thoracentesis ultrasound on February 29, 2024.. FINDINGS: An effusion is noted in the left thorax which is small and multiloculated. This is insufficient for a thoracentesis. IMPRESSION: Small multiloculated left pleural effusion which is insufficient for a thoracentesis. Reviewed by: Kassie To MD on 03/27/2024 4:36 PM PDT Approved by: Kassie To MD on 03/27/2024 4:36 PM PDT Station ID: [id number]
== END 2024-03-27 13:55 | disposition home or self-care (01) ==
LOC: DI 13:54
PROVIDERS: ATTEND Internal Medicine Hematology & Oncology
DX: C34.90 Malignant neoplasm of unspecified part of unspecified bronchus or lung (principal); J91.0 Malignant pleural effusion

== ENCOUNTER 2024-04-03 08:00 | Outpatient (CLI) | payer MEDICARE | END 2024-04-03 23:59 | disposition home or self-care (01) | LOC: PC 08:00 | PROVIDERS: ATTEND Nurse Practitioner Adult Health | DX: Z51.5 Encounter for palliative care (principal); C67.9 Malignant neoplasm of bladder, unspecified; G89.3 Neoplasm related pain (acute) (chronic); K59.03 Drug induced constipation; R11.2 Nausea with vomiting, unspecified; J44.9 Chronic obstructive pulmonary disease, unspecified; Z87.891 Personal history of nicotine dependence; Z85.118 Personal history of other malignant neoplasm of bronchus and lung | CPT/HCPCS: 99215 ==

== ENCOUNTER 2024-04-12 08:00 | Outpatient (CLI) | payer MEDICARE | END 2024-04-12 23:59 | disposition home or self-care (01) | LOC: PC 08:00 | PROVIDERS: ATTEND Nurse Practitioner Adult Health | DX: Z51.5 Encounter for palliative care (principal); C34.90 Malignant neoplasm of unspecified part of unspecified bronchus or lung | CPT/HCPCS: 99426; 99427 ==

== ENCOUNTER 2024-04-22 08:00 | Outpatient (CLI) | payer MEDICARE | END 2024-04-22 23:59 | disposition home or self-care (01) | LOC: PC 08:00 | PROVIDERS: ATTEND Nurse Practitioner Adult Health | DX: Z51.5 Encounter for palliative care (principal); C34.32 Malignant neoplasm of lower lobe, left bronchus or lung; C67.9 Malignant neoplasm of bladder, unspecified; C79.9 Secondary malignant neoplasm of unspecified site; G89.3 Neoplasm related pain (acute) (chronic); F41.9 Anxiety disorder, unspecified; R63.4 Abnormal weight loss; T50.905A Adverse effect of unspecified drugs, medicaments and biological substances, initial encounter; K59.03 Drug induced constipation; Z68.1 Body mass index [BMI] 19.9 or less, adult; Z71.2 Person consulting for explanation of examination or test findings; Z79.899 Other long term (current) drug therapy; Z87.891 Personal history of nicotine dependence | CPT/HCPCS: 99215 ==

== ENCOUNTER 2024-05-13 08:35 | Outpatient (CLI) | payer MEDICARE | END 2024-05-13 23:59 | disposition home or self-care (01) | LOC: PC 08:35 | PROVIDERS: ATTEND Nurse Practitioner Adult Health | DX: Z51.5 Encounter for palliative care (principal); G89.3 Neoplasm related pain (acute) (chronic); G57.01 Lesion of sciatic nerve, right lower limb; M25.511 Pain in right shoulder; F41.9 Anxiety disorder, unspecified; C34.32 Malignant neoplasm of lower lobe, left bronchus or lung; C79.9 Secondary malignant neoplasm of unspecified site; R63.4 Abnormal weight loss; Z68.1 Body mass index [BMI] 19.9 or less, adult | CPT/HCPCS: 99215 ==

== ENCOUNTER 2024-06-12 08:00 | Outpatient (CLI) | payer MEDICARE | END 2024-06-12 23:59 | disposition home or self-care (01) | LOC: PC 08:00 | PROVIDERS: ATTEND Nurse Practitioner Adult Health | DX: Z51.5 Encounter for palliative care (principal); C34.90 Malignant neoplasm of unspecified part of unspecified bronchus or lung | CPT/HCPCS: 99426; 99427 ==

== ENCOUNTER 2024-06-24 08:00 | Outpatient (CLI) | payer MEDICARE | END 2024-06-24 23:59 | disposition home or self-care (01) | LOC: PC 08:00 | PROVIDERS: ATTEND Nurse Practitioner Adult Health | DX: Z51.5 Encounter for palliative care (principal); G89.3 Neoplasm related pain (acute) (chronic); G57.01 Lesion of sciatic nerve, right lower limb; M25.511 Pain in right shoulder; Z79.891 Long term (current) use of opiate analgesic; F41.9 Anxiety disorder, unspecified; Z79.899 Other long term (current) drug therapy; K59.03 Drug induced constipation; Z71.89 Other specified counseling; R63.4 Abnormal weight loss; C34.92 Malignant neoplasm of unspecified part of left bronchus or lung; C67.9 Malignant neoplasm of bladder, unspecified; R53.83 Other fatigue; Z66 Do not resuscitate; Z87.891 Personal history of nicotine dependence | CPT/HCPCS: 99215 ==

== ENCOUNTER 2024-07-16 08:00 | Outpatient (CLI) | payer MEDICARE | END 2024-07-16 23:59 | disposition home or self-care (01) | LOC: PC 08:00 | PROVIDERS: ATTEND Nurse Practitioner Adult Health | DX: Z51.5 Encounter for palliative care (principal); C34.32 Malignant neoplasm of lower lobe, left bronchus or lung; G89.3 Neoplasm related pain (acute) (chronic); M25.511 Pain in right shoulder; K59.03 Drug induced constipation; C67.9 Malignant neoplasm of bladder, unspecified; M54.40 Lumbago with sciatica, unspecified side; Z66 Do not resuscitate; Z79.899 Other long term (current) drug therapy | CPT/HCPCS: 99215 ==